=== PATIENT | male | born 1955 | race Caucasian/White ===

== ENCOUNTER → 2017-06-02 | Outpatient (CLI) | payer BC ==
[~2017-06-02] MED LIST: AMLO10TA82 PO; ASP81TEC PO; DABI150C2 PO; FOSI40TA2 PO; NEBI20TA2 PO; NFNEB10T PO; OMEG-12 PO; PANT40TA PO
== END ==
LOC: CARD 13:42
PROVIDERS: ATTEND Physician Assistant
DX: I35.0 Nonrheumatic aortic (valve) stenosis (principal); I25.10 Atherosclerotic heart disease of native coronary artery without angina pectoris; I11.0 Hypertensive heart disease with heart failure; I50.9 Heart failure, unspecified; E78.2 Mixed hyperlipidemia
CPT/HCPCS: 93306

== ENCOUNTER → 2017-08-17 | Outpatient (CLI) | payer BC ==
[~2017-08-17] MED LIST changes: +ASPI-983 PO; +CARV25TA PO; +FISH1CAP15 PO; +HYDR25TA4 PO; +LISI40TA PO; +MULT1TAB69 PO; +OMEP20TA7 PO; +PANT40TA3 PO; +WARF4TAB70 PO
[2017-08-17 09:30] LABS: BASOPHILS % (AUTO) 1 % (0-10); EOSINOPHILS # (AUTO) 0.1 10^3/uL (0.0-0.3); EOSINOPHILS % (AUTO) 2 % (0-10); LYMPHOCYTES # (AUTO) 0.5 X 10^3 (1.0-4.0); LYMPHOCYTES % (AUTO) 10 % (12-44); MEAN CORPUSCULAR HEMOGLOBIN 35 PG (25-34); MEAN CORPUSCULAR HGB CONC 32 G/DL (32-36); MEAN CORPUSCULAR VOLUME 110 FL (80-99); MEAN PLATELET VOLUME 10.5 FL (7.4-10.4); MONOCYTES # (AUTO) 0.5 X 10^3 (0.0-1.0); MONOCYTES % (AUTO) 11 % (0-12); NEUTROPHILS # (AUTO) 3.5 X 10^3 (1.8-7.8); NEUTROPHILS % (AUTO) 75 % (42-75); PLATELET COUNT 219 10^3/uL (130-400); RED BLOOD COUNT 2.63 10^6/uL (4.35-5.85); RED CELL DISTRIBUTION WIDTH 18.6 % (10.0-14.5); WHITE BLOOD COUNT 4.6 10^3/uL (4.3-11.0)
== END ==
LOC: LAB 09:20
PROVIDERS: ATTEND Family Medicine
DX: D64.9 Anemia, unspecified (principal)
CPT/HCPCS: 36415; 85025

== ENCOUNTER → 2017-09-15 | Outpatient (CLI) | payer BC ==
--- NOTE | 2017-09-15 16:03 | Diagnostic Imaging Report ---
EXAMINATION: PET-CT. TECHNIQUE: Serum glucose level at the time of the study is: 143 mg/dL. 12.2 mCi of FDG was administered intravenously followed by obtaining PET images with corresponding noncontrast CT scan images. The CT scan was performed for anatomic correlation and attenuation correction and was not performed according to the diagnostic protocol of the areas covered. The scan was performed from the head to mid thighs. INDICATION: Lung nodule. FINDINGS: There is symmetric FDG uptake in the brain. No suspicious hypermetabolic activity in the neck is seen. In the lower lateral aspect of the left chest wall, there is a mild focus of activity that appears to correlate with a subacute rib fracture with no suspicious mass. The nodule seen in the right lower lobe on the previous CT is again noted measuring 1.5 cm with no significant FDG uptake, suggestive of a benign etiology. In the abdomen and pelvis, there is urinary tract excretion seen with no suspicious mass. Activity is noted along the right antecubital fossa region, probably related to injection site partial infiltration. IMPRESSION: A 1.5 cm right lower lobe pulmonary nodule does not have significant FDG uptake in favor of a benign etiology such as a postinfectious granuloma or hamartoma. A followup CT scan of the chest in 3 months is recommended to ensure stability. Dictated by: Dictated on workstation # [id number]
== END ==
LOC: RAD 08:04
PROVIDERS: ATTEND Internal Medicine Hematology & Oncology
DX: R91.1 Solitary pulmonary nodule (principal); R74.8 Abnormal levels of other serum enzymes

== ENCOUNTER → 2017-09-29 | Outpatient (CLI) | payer BC ==
[~2017-09-29] MED LIST changes: +GADOBUTROL 10 MMOL/10 ML (GADAVIST) VIAL IV ONE
--- NOTE | 2017-09-29 12:48 | Diagnostic Imaging Report ---
CLINICAL INDICATION: Patient states he has no complaints at this time and test is for job requirement. EXAM: MRI of the brain performed without and with 9 cc of Gadovist IV contrast. Sequences include axial DWI, ADC map, coronal gradient echo, axial T2, axial FLAIR, axial T1, axial T1 post IV contrast, coronal T1 fat-sat post IV contrast, and sagittal T1 post IV contrast. COMPARISON: Head CT without contrast dated 08/07/2017. FINDINGS: There is no evidence of acute cerebral infarct, intracranial hemorrhage, or gross mass effect. There are focal and patchy areas of high T2 signal white matter changes seen throughout both cerebral hemispheres and bilateral cerebellar regions related to chronic small vessel ischemic disease. There is normal redman-white matter distinction. The brain parenchymal volume appears appropriate for patient's age. There is no significant midline shift or herniation. The pituitary gland, sella, and suprasellar regions are unremarkable as visualized. The [place] vascular structures show no gross abnormality as visualized. There is no evidence of hydrocephalus. The basal cisterns are unremarkable. The skull, extracranial soft tissue, and orbits are unremarkable. There is mild mucosal thickening involving both maxillary sinuses, ethmoid sinus, and sphenoid sinus. IMPRESSION: 1: There is no evidence of acute cerebral infarction, intracranial hemorrhage, hydrocephalus, or enhancing mass. 2: There is diffuse chronic small vessel ischemic disease. 3: Mild paranasal sinus disease. Dictated by: Dictated on workstation # [id number]
== END ==
LOC: RAD 11:16
PROVIDERS: ATTEND Internal Medicine Hematology & Oncology
DX: I67.82 Cerebral ischemia (principal); J34.89 Other specified disorders of nose and nasal sinuses
CPT/HCPCS: 70553

== ENCOUNTER 2017-10-21 07:53 | Outpatient (RCR) | payer BC ==
[2017-09-02 14:39] LABS: ABSOLUTE RETIC # 145 10e9/L (24-90); BASOPHILS % (AUTO) 1 % (0-10); EOSINOPHILS # (AUTO) 0.1 10^3/uL (0.0-0.3); EOSINOPHILS % (AUTO) 2 % (0-10); HEMATOCRIT 31 % (40-54); HEMOGLOBIN 9.5 G/DL (13.3-17.7); LYMPHOCYTES # (AUTO) 0.5 X 10^3 (1.0-4.0); LYMPHOCYTES % (AUTO) 12 % (12-44); MEAN CORPUSCULAR HEMOGLOBIN 34 PG (25-34); MEAN CORPUSCULAR HGB CONC 31 G/DL (32-36); MEAN CORPUSCULAR VOLUME 109 FL (80-99); MEAN PLATELET VOLUME 10.8 FL (7.4-10.4); MONOCYTES # (AUTO) 0.4 X 10^3 (0.0-1.0); MONOCYTES % (AUTO) 10 % (0-12); NEUTROPHILS # (AUTO) 3.2 X 10^3 (1.8-7.8); NEUTROPHILS % (AUTO) 75 % (42-75); PLATELET COUNT 235 10^3/uL (130-400); RED BLOOD COUNT 2.83 10^6/uL (4.35-5.85); RED CELL DISTRIBUTION WIDTH 15.9 % (10.0-14.5); RETICULOCYTE % 5.11 % (0.50-2.40); WHITE BLOOD COUNT 4.2 10^3/uL (4.3-11.0)
[2017-09-02 15:09] LABS: BAND NEUTROPHILS 0 %; BASOPHILS % (MANUAL) 1 %; EOSINOPHILS % (MANUAL) 0 %; LYMPHOCYTES % (MANUAL) 11 %; MONOCYTES % (MANUAL) 11 %; NEUTROPHILS % (MANUAL) 77 %; POLYCHROMASIA SLIGHT
[2017-09-02 15:10] LABS: ANISOCYTOSIS SLIGHT
[2017-09-02 15:12] LABS: ALANINE AMINOTRANSFERASE 20 U/L (0-55); ALBUMIN 3.5 GM/DL (3.2-4.5); ALKALINE PHOSPHATASE 124 U/L (40-136); BILIRUBIN,TOTAL 1.1 MG/DL (0.1-1.0); BUN/CREATININE RATIO 17; CALCIUM 8.8 MG/DL (8.5-10.1); CARBON DIOXIDE 29 MMOL/L (21-32); CHLORIDE 106 MMOL/L (98-107); CREATININE SERUM 0.75 MG/DL (0.60-1.30); GFR ESTIMATED > 60; GLUCOSE 99 MG/DL (70-105); POTASSIUM 4.2 MMOL/L (3.6-5.0); SODIUM 143 MMOL/L (135-145)
[2017-09-23 14:02] LABS: BASOPHILS % (AUTO) 1 % (0-10); EOSINOPHILS # (AUTO) 0.1 10^3/uL (0.0-0.3); EOSINOPHILS % (AUTO) 1 % (0-10); HEMATOCRIT 39 % (40-54); HEMOGLOBIN 12.6 G/DL (13.3-17.7); LYMPHOCYTES # (AUTO) 0.8 X 10^3 (1.0-4.0); LYMPHOCYTES % (AUTO) 14 % (12-44); MEAN CORPUSCULAR HEMOGLOBIN 32 PG (25-34); MEAN CORPUSCULAR HGB CONC 33 G/DL (32-36); MEAN CORPUSCULAR VOLUME 99 FL (80-99); MEAN PLATELET VOLUME 10.3 FL (7.4-10.4); MONOCYTES # (AUTO) 0.5 X 10^3 (0.0-1.0); MONOCYTES % (AUTO) 8 % (0-12); NEUTROPHILS # (AUTO) 4.3 X 10^3 (1.8-7.8); NEUTROPHILS % (AUTO) 76 % (42-75); PLATELET COUNT 263 10^3/uL (130-400); RED BLOOD COUNT 3.91 10^6/uL (4.35-5.85); RED CELL DISTRIBUTION WIDTH 14.1 % (10.0-14.5); WHITE BLOOD COUNT 5.7 10^3/uL (4.3-11.0)
[2017-09-23 14:19] LABS: INR 1.7 (0.8-1.4); PROTHROMBIN TIME PATIENT 19.6 SEC (12.2-14.7)
[2017-09-23 14:20] LABS: ALANINE AMINOTRANSFERASE 14 U/L (0-55); ALKALINE PHOSPHATASE 89 U/L (40-136); BILIRUBIN,TOTAL 0.6 MG/DL (0.1-1.0); BUN/CREATININE RATIO 12; CALCIUM 9.9 MG/DL (8.5-10.1); CARBON DIOXIDE 27 MMOL/L (21-32); CHLORIDE 103 MMOL/L (98-107); CREATININE SERUM 1.03 MG/DL (0.60-1.30); GFR ESTIMATED > 60; GLUCOSE 99 MG/DL (70-105); POTASSIUM 4.4 MMOL/L (3.6-5.0); SODIUM 139 MMOL/L (135-145); TOTAL PROTEIN 7.3 GM/DL (6.4-8.2)
[~2017-10-21 07:53] MED LIST changes: -GADOBUTROL 10 MMOL/10 ML (GADAVIST) VIAL IV ONE
[2017-10-21 08:10] LABS: BASOPHILS % (AUTO) 0 % (0-10); EOSINOPHILS # (AUTO) 0.1 10^3/uL (0.0-0.3); EOSINOPHILS % (AUTO) 2 % (0-10); HEMATOCRIT 45 % (40-54); HEMOGLOBIN 14.9 G/DL (13.3-17.7); LYMPHOCYTES # (AUTO) 0.7 X 10^3 (1.0-4.0); LYMPHOCYTES % (AUTO) 16 % (12-44); MEAN CORPUSCULAR HEMOGLOBIN 32 PG (25-34); MEAN CORPUSCULAR HGB CONC 33 G/DL (32-36); MEAN CORPUSCULAR VOLUME 96 FL (80-99); MEAN PLATELET VOLUME 10.6 FL (7.4-10.4); MONOCYTES # (AUTO) 0.5 X 10^3 (0.0-1.0); MONOCYTES % (AUTO) 10 % (0-12); NEUTROPHILS # (AUTO) 3.3 X 10^3 (1.8-7.8); NEUTROPHILS % (AUTO) 72 % (42-75); PLATELET COUNT 186 10^3/uL (130-400); RED BLOOD COUNT 4.65 10^6/uL (4.35-5.85); RED CELL DISTRIBUTION WIDTH 15.1 % (10.0-14.5); WHITE BLOOD COUNT 4.6 10^3/uL (4.3-11.0)
[2017-10-21 08:30] LABS: ALANINE AMINOTRANSFERASE 12 U/L (0-55); ALBUMIN 3.9 GM/DL (3.2-4.5); ALKALINE PHOSPHATASE 91 U/L (40-136); BILIRUBIN,TOTAL 0.5 MG/DL (0.1-1.0); BUN/CREATININE RATIO 13; CALCIUM 9.5 MG/DL (8.5-10.1); CARBON DIOXIDE 24 MMOL/L (21-32); CHLORIDE 109 MMOL/L (98-107); GFR ESTIMATED > 60; GLUCOSE 110 MG/DL (70-105); POTASSIUM 4.4 MMOL/L (3.6-5.0); SODIUM 143 MMOL/L (135-145)
== END 2017-12-01 | disposition home or self-care (01) ==
LOC: ONC 07:53
PROVIDERS: ATTEND Internal Medicine Hematology & Oncology
DX: D53.9 Nutritional anemia, unspecified (principal); R91.1 Solitary pulmonary nodule; R74.8 Abnormal levels of other serum enzymes; I48.0 Paroxysmal atrial fibrillation; I42.9 Cardiomyopathy, unspecified; I50.9 Heart failure, unspecified; I27.20 Pulmonary hypertension, unspecified; R41.0 Disorientation, unspecified; Z79.01 Long term (current) use of anticoagulants; Z95.2 Presence of prosthetic heart valve; Z79.82 Long term (current) use of aspirin; Z79.899 Other long term (current) drug therapy
CPT/HCPCS: 36415; 80053; 82525; 82607; 82728; 82746; 83090; 83540; 83921; 85007; 85025; 85027; 85045; 85610; 86880; 99213; 99214

== ENCOUNTER → 2017-12-14 | Outpatient (CLI) | payer BC ==
[~2017-12-14] MED LIST changes: +CATHETER FLUSH 10 ML SYR IV PRN; +IOHEXOL 350 MG/ML 100 ML (OMNIPAQUE 350) VIAL IV ONE; +NS 100 ML (IVPB) BAG IV ONE
--- NOTE | 2017-12-14 13:10 | Diagnostic Imaging Report ---
PROCEDURE: CT chest with contrast only. TECHNIQUE: Multiple contiguous axial images were obtained through the chest after administration of intravenous contrast. INDICATION: Right lower lobe lung nodule. Study is performed for followup. COMPARISON: Comparison is made with prior CT chest from 07/27/2017. FINDINGS: No axillary lymphadenopathy is identified. No hilar or mediastinal lymphadenopathy is detected. 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 No pericardial or pleural fluid is identified. Parenchymal evaluation again demonstrates the smoothly marginated and slightly lobulated mass in the right lower lobe. This measures approximately 16 mm compared with 15 mm on prior exam. No associated calcifications are seen. No new parenchymal mass is seen. The previously noted mild tree-in-bud opacities in the lower lobes have largely resolved, likely representing improving pneumonia. Chronic parenchymal densities in the right upper lobe and subpleural densities in the superior segment of the right lower lobe are stable. Imaging through the upper abdomen does show small stones or sludge within the gallbladder. No other significant abnormality seen. IMPRESSION: 1. Improvement in bilateral infiltrates when compared with prior study from 07/27/2017. 2. Stable smoothly marginated mass in the right lower lobe. Continued short-interval followup with repeat CT chest in four to six months is recommended to show continued stability. Dictated by: Dictated on workstation # [id number]
== END ==
LOC: RAD 10:51
PROVIDERS: ATTEND Internal Medicine Hematology & Oncology
DX: R91.8 Other nonspecific abnormal finding of lung field (principal)
CPT/HCPCS: 71260

== ENCOUNTER 2018-01-20 07:52 | Outpatient (RCR) | payer BC ==
[2017-12-14 10:54] LABS: BASOPHILS % (AUTO) 1 % (0-10); EOSINOPHILS # (AUTO) 0.2 10^3/uL (0.0-0.3); EOSINOPHILS % (AUTO) 3 % (0-10); HEMATOCRIT 43 % (40-54); HEMOGLOBIN 15.1 G/DL (13.3-17.7); LYMPHOCYTES # (AUTO) 0.7 X 10^3 (1.0-4.0); LYMPHOCYTES % (AUTO) 14 % (12-44); MEAN CORPUSCULAR HEMOGLOBIN 32 PG (25-34); MEAN CORPUSCULAR HGB CONC 35 G/DL (32-36); MEAN CORPUSCULAR VOLUME 93 FL (80-99); MEAN PLATELET VOLUME 10.8 FL (7.4-10.4); MONOCYTES # (AUTO) 0.5 X 10^3 (0.0-1.0); MONOCYTES % (AUTO) 10 % (0-12); NEUTROPHILS # (AUTO) 3.5 X 10^3 (1.8-7.8); NEUTROPHILS % (AUTO) 72 % (42-75); PLATELET COUNT 190 10^3/uL (130-400); RED BLOOD COUNT 4.66 10^6/uL (4.35-5.85); WHITE BLOOD COUNT 4.8 10^3/uL (4.3-11.0)
[2017-12-14 11:18] LABS: ALANINE AMINOTRANSFERASE 10 U/L (0-55); ALBUMIN 3.8 GM/DL (3.2-4.5); ALKALINE PHOSPHATASE 74 U/L (40-136); BILIRUBIN,TOTAL 0.8 MG/DL (0.1-1.0); BUN/CREATININE RATIO 13; CALCIUM 9.6 MG/DL (8.5-10.1); CARBON DIOXIDE 26 MMOL/L (21-32); CHLORIDE 106 MMOL/L (98-107); CREATININE SERUM 0.85 MG/DL (0.60-1.30); GFR ESTIMATED > 60; GLUCOSE 97 MG/DL (70-105); POTASSIUM 4.6 MMOL/L (3.6-5.0); SODIUM 138 MMOL/L (135-145); TOTAL PROTEIN 6.5 GM/DL (6.4-8.2)
[~2018-01-20 07:52] MED LIST changes: -CATHETER FLUSH 10 ML SYR IV PRN; -IOHEXOL 350 MG/ML 100 ML (OMNIPAQUE 350) VIAL IV ONE; -NS 100 ML (IVPB) BAG IV ONE
[2018-01-20 08:41] LABS: BASOPHILS % (AUTO) 1 % (0-10); EOSINOPHILS # (AUTO) 0.1 10^3/uL (0.0-0.3); EOSINOPHILS % (AUTO) 2 % (0-10); HEMATOCRIT 41 % (40-54); HEMOGLOBIN 14.5 G/DL (13.3-17.7); LYMPHOCYTES # (AUTO) 0.5 X 10^3 (1.0-4.0); LYMPHOCYTES % (AUTO) 8 % (12-44); MEAN CORPUSCULAR HEMOGLOBIN 35 PG (25-34); MEAN CORPUSCULAR HGB CONC 36 G/DL (32-36); MEAN CORPUSCULAR VOLUME 97 FL (80-99); MEAN PLATELET VOLUME 10.6 FL (7.4-10.4); MONOCYTES # (AUTO) 0.6 X 10^3 (0.0-1.0); MONOCYTES % (AUTO) 10 % (0-12); NEUTROPHILS # (AUTO) 4.9 X 10^3 (1.8-7.8); NEUTROPHILS % (AUTO) 80 % (42-75); PLATELET COUNT 172 10^3/uL (130-400); RED BLOOD COUNT 4.18 10^6/uL (4.35-5.85); RED CELL DISTRIBUTION WIDTH 16.6 % (10.0-14.5); WHITE BLOOD COUNT 6.1 10^3/uL (4.3-11.0)
[2018-01-20 08:58] LABS: ALANINE AMINOTRANSFERASE 9 U/L (0-55); ALKALINE PHOSPHATASE 65 U/L (40-136); BILIRUBIN,TOTAL 1.2 MG/DL (0.1-1.0); BUN/CREATININE RATIO 9; CALCIUM 9.3 MG/DL (8.5-10.1); CARBON DIOXIDE 28 MMOL/L (21-32); CHLORIDE 104 MMOL/L (98-107); CREATININE SERUM 0.88 MG/DL (0.60-1.30); GFR ESTIMATED > 60; GLUCOSE 104 MG/DL (70-105); POTASSIUM 3.8 MMOL/L (3.6-5.0); SODIUM 139 MMOL/L (135-145); TOTAL PROTEIN 6.7 GM/DL (6.4-8.2)
== END 2018-03-14 | disposition home or self-care (01) ==
LOC: ONC 07:52
PROVIDERS: ATTEND Internal Medicine Hematology & Oncology
DX: D53.9 Nutritional anemia, unspecified (principal); R91.1 Solitary pulmonary nodule; R74.8 Abnormal levels of other serum enzymes; I48.0 Paroxysmal atrial fibrillation; I42.9 Cardiomyopathy, unspecified; I50.9 Heart failure, unspecified; I27.20 Pulmonary hypertension, unspecified; R41.0 Disorientation, unspecified; Z95.2 Presence of prosthetic heart valve; Z79.01 Long term (current) use of anticoagulants; Z79.82 Long term (current) use of aspirin; Z79.899 Other long term (current) drug therapy
CPT/HCPCS: 36415; 80053; 85025; 99213

== ENCOUNTER 2018-04-21 07:56 | Outpatient (RCR) | payer BC | END 2018-04-27 | disposition home or self-care (01) | LOC: ONC 07:56 | PROVIDERS: ATTEND Internal Medicine Hematology & Oncology | DX: D53.9 Nutritional anemia, unspecified (principal); R91.1 Solitary pulmonary nodule; R74.8 Abnormal levels of other serum enzymes; I48.0 Paroxysmal atrial fibrillation; I42.9 Cardiomyopathy, unspecified; I50.9 Heart failure, unspecified; I27.20 Pulmonary hypertension, unspecified; R41.0 Disorientation, unspecified; Z95.2 Presence of prosthetic heart valve; Z79.01 Long term (current) use of anticoagulants; Z79.82 Long term (current) use of aspirin; Z79.899 Other long term (current) drug therapy | CPT/HCPCS: 99213 ==

== ENCOUNTER → 2018-06-16 | Outpatient (CLI) | payer BC, MEDICARE | LOC: CARD 11:34 | PROVIDERS: ATTEND Physician Assistant | DX: I08.3 Combined rheumatic disorders of mitral, aortic and tricuspid valves (principal); I50.9 Heart failure, unspecified; I25.10 Atherosclerotic heart disease of native coronary artery without angina pectoris | CPT/HCPCS: 93306 ==

== ENCOUNTER → 2018-07-28 | Outpatient (CLI) | payer BC, MEDICARE ==
[~2018-07-28] MED LIST changes: +IOHEXOL 350 MG/ML 100 ML (OMNIPAQUE 350) VIAL IV ONE; +NS 250 ML (IVPB) BAG IV ONE
--- NOTE | 2018-07-28 12:38 | Diagnostic Imaging Report ---
PROCEDURE: CT chest with contrast only. TECHNIQUE: Multiple contiguous axial images were obtained through the chest after administration of intravenous contrast. INDICATION: Lung nodule, followup. Correlation is made with prior CT chest from 12/14/2017. FINDINGS: No axillary, hilar or mediastinal lymphadenopathy is detected. No pericardial or pleural fluid is identified. There is a density in the posterolateral right upper lobe, image 22, series 2 measuring 9-10 mm, similar to prior exam. Ill-defined subpleural density in left upper lobe laterally is also stable. There is a tiny nodule in superior segment of right lower lobe which appears stable. Smoothly marginated and lobulated nodule in the right lower lobe is stable at 16 mm. Upper abdomen demonstrates a hyperdensity in the right lobe of the liver, similar to prior study. There are multiple stones in the gallbladder. IMPRESSION: 1. Overall stable CT of the chest when compared with prior study from 12/14/2017. Additional six-month followup is recommended to show continued stability of bilateral parenchymal densities. 2. Cholelithiasis. Dictated by: Dictated on workstation # [id number]
== END ==
LOC: RAD 11:44
PROVIDERS: ATTEND Internal Medicine Hematology & Oncology
DX: K80.20 Calculus of gallbladder without cholecystitis without obstruction (principal); R91.1 Solitary pulmonary nodule
CPT/HCPCS: 71260

== ENCOUNTER 2018-08-04 10:10 | Outpatient (RCR) | payer BC, OTHER ==
[~2018-08-04 10:10] MED LIST changes: -IOHEXOL 350 MG/ML 100 ML (OMNIPAQUE 350) VIAL IV ONE; -NS 250 ML (IVPB) BAG IV ONE
== END 2018-11-02 | disposition home or self-care (01) ==
LOC: ONC 10:10
PROVIDERS: ATTEND Internal Medicine Hematology & Oncology
DX: D53.9 Nutritional anemia, unspecified (principal); R91.1 Solitary pulmonary nodule; R74.8 Abnormal levels of other serum enzymes; I48.0 Paroxysmal atrial fibrillation; I42.9 Cardiomyopathy, unspecified; I50.9 Heart failure, unspecified; I27.20 Pulmonary hypertension, unspecified; R41.0 Disorientation, unspecified; Z95.2 Presence of prosthetic heart valve; Z79.01 Long term (current) use of anticoagulants; Z79.82 Long term (current) use of aspirin; Z79.899 Other long term (current) drug therapy
CPT/HCPCS: 99213

== ENCOUNTER 2019-08-04 10:12 | Outpatient (RCR) | payer BC, OTHER | END 2019-11-02 | disposition home or self-care (01) | LOC: ONC 10:12 | PROVIDERS: ATTEND Internal Medicine Hematology & Oncology | DX: D53.9 Nutritional anemia, unspecified (principal); R91.1 Solitary pulmonary nodule; R74.8 Abnormal levels of other serum enzymes; I48.0 Paroxysmal atrial fibrillation; I42.9 Cardiomyopathy, unspecified; I11.0 Hypertensive heart disease with heart failure; I50.9 Heart failure, unspecified; I27.20 Pulmonary hypertension, unspecified; R41.0 Disorientation, unspecified; I25.10 Atherosclerotic heart disease of native coronary artery without angina pectoris; Z95.2 Presence of prosthetic heart valve; Z79.01 Long term (current) use of anticoagulants; Z79.82 Long term (current) use of aspirin; Z79.899 Other long term (current) drug therapy; F03.90 Unspecified dementia, unspecified severity, without behavioral disturbance, psychotic disturbance, mood disturbance, and anxiety; Z72.0 Tobacco use | CPT/HCPCS: 99213 ==

== ENCOUNTER → 2020-09-12 | Outpatient (CLI) | payer MEDICARE, OTHER ==
[~2020-09-12] MED LIST changes: +ASPI-1238 PO; -ASPI-983 PO; +MULT-567 PO; -MULT1TAB69 PO; -PANT40TA3 PO; +PANT40TA52 PO; +WARF4TAB3 PO; -WARF4TAB70 PO
[2020-09-12 14:29] LABS: BASOPHILS # (AUTO) 0.1 10^3/uL (0.0-0.1); BASOPHILS % (AUTO) 1 % (0-10); EOSINOPHILS # (AUTO) 0.2 10^3/uL (0.0-0.3); EOSINOPHILS % (AUTO) 3 % (0-10); HEMATOCRIT 45 % (40-54); LYMPHOCYTES # (AUTO) 1.2 10^3/uL (1.0-4.0); LYMPHOCYTES % (AUTO) 16 % (12-44); MEAN CORPUSCULAR HEMOGLOBIN 33 pg (25-34); MEAN CORPUSCULAR HGB CONC 33 g/dL (32-36); MEAN CORPUSCULAR VOLUME 99 fL (80-99); MEAN PLATELET VOLUME 9.6 fL (9.0-12.2); MONOCYTES # (AUTO) 0.7 10^3/uL (0.0-1.0); MONOCYTES % (AUTO) 9 % (0-12); NEUTROPHILS # (AUTO) 5.4 10^3/uL (1.8-7.8); NEUTROPHILS % (AUTO) 72 % (42-75); PLATELET COUNT 227 10^3/uL (130-400); WHITE BLOOD COUNT 7.5 10^3/uL (4.3-11.0)
[2020-09-12 14:50] LABS: ALANINE AMINOTRANSFERASE 14 U/L (0-55); ALBUMIN 4.3 GM/DL (3.2-4.5); ALKALINE PHOSPHATASE 62 U/L (40-136); BILIRUBIN,TOTAL 0.8 MG/DL (0.1-1.0); BUN/CREATININE RATIO 13; CALCIUM 9.1 MG/DL (8.5-10.1); CARBON DIOXIDE 24 MMOL/L (21-32); CHLORIDE 102 MMOL/L (98-107); CREATININE SERUM 1.09 MG/DL (0.60-1.30); GFR ESTIMATED > 60; GLUCOSE 106 MG/DL (70-105); POTASSIUM 4.3 MMOL/L (3.6-5.0); SODIUM 135 MMOL/L (135-145); TOTAL PROTEIN 7.2 GM/DL (6.4-8.2)
== END ==
LOC: ONC 14:15 → EDSTATUS 15:25
PROVIDERS: ATTEND Internal Medicine Hematology & Oncology
DX: D53.9 Nutritional anemia, unspecified (principal); R91.1 Solitary pulmonary nodule; R74.8 Abnormal levels of other serum enzymes; I11.0 Hypertensive heart disease with heart failure; I25.10 Atherosclerotic heart disease of native coronary artery without angina pectoris; I27.20 Pulmonary hypertension, unspecified; I48.0 Paroxysmal atrial fibrillation; I42.9 Cardiomyopathy, unspecified; I50.9 Heart failure, unspecified; R41.0 Disorientation, unspecified; Z95.2 Presence of prosthetic heart valve; Z79.01 Long term (current) use of anticoagulants; Z79.82 Long term (current) use of aspirin; Z79.899 Other long term (current) drug therapy; F03.90 Unspecified dementia, unspecified severity, without behavioral disturbance, psychotic disturbance, mood disturbance, and anxiety; Z72.0 Tobacco use
CPT/HCPCS: 80053; 82728; 85025; G0463; 99213

== ENCOUNTER → 2020-10-26 | Outpatient (CLI) | payer MEDICARE | LOC: CARD 10:00 | PROVIDERS: ATTEND Internal Medicine Cardiovascular Disease | DX: I08.3 Combined rheumatic disorders of mitral, aortic and tricuspid valves (principal); I50.9 Heart failure, unspecified; Z95.2 Presence of prosthetic heart valve | CPT/HCPCS: 93306 ==

== ENCOUNTER → 2021-05-27 | Outpatient (CLI) | payer MEDICARE ==
[~2021-05-27] MED LIST changes: -LISI40TA PO; +LISI40TA9 PO
== END ==
LOC: CARD 11:00
PROVIDERS: ATTEND Internal Medicine Cardiovascular Disease
DX: I08.0 Rheumatic disorders of both mitral and aortic valves (principal); I11.9 Hypertensive heart disease without heart failure; I25.10 Atherosclerotic heart disease of native coronary artery without angina pectoris
CPT/HCPCS: 93306

== ENCOUNTER → 2022-05-21 | Outpatient (CLI) | payer MEDICARE ==
[~2022-05-21] MED LIST changes: +OMEP20TA56 PO; -OMEP20TA7 PO
== END ==
LOC: CARD 11:33
PROVIDERS: ATTEND Internal Medicine Cardiovascular Disease
DX: I25.10 Atherosclerotic heart disease of native coronary artery without angina pectoris (principal); I08.2 Rheumatic disorders of both aortic and tricuspid valves; I11.9 Hypertensive heart disease without heart failure; Z95.2 Presence of prosthetic heart valve
CPT/HCPCS: 93306

== ENCOUNTER → 2022-05-28 | Outpatient (CLI) | payer MEDICARE ==
[~2022-05-28] VITALS: Ht 187 cm; Wt 68.0 kg
[~2022-05-28] MED LIST changes: +CATHETER FLUSH 10 ML SYR IVP PRN; +REGADENOSON 0.4 MG/5 ML SYR (LEXISCAN) IV ONE
[2022-05-28 09:24] VITALS: BP 144/72
--- NOTE | 2022-05-28 16:55 | Cardiology Stress Test Report ---
Stress Test Report Date of Procedure/Referring: Date of Procedure: May 28, 2022 PCP Admitting Physician Admitting Physician: Attending Physician: Misael Davis MD Indications: cp Baseline Heart Rate: 53 Baseline Blood Pressure: Blood Pressure Systolic: 144 Blood Pressure Diastolic: 72 Baseline Vitals Vital Signs Date Time Temp Pulse Resp B/P (MAP) Pulse Ox O2 Delivery O2 Flow Rate FiO2 05/28/22 09:24 76 144/72 (96) Baseline EKG: Baseline EKG: NSR Summary After explaining the procedure to the patient, he signed a consent and then brought to the stress nuclear laboratory. Patient received 0.4 mg Lexiscan for stress test, ECG, heart rate and blood pressure were monitored continuously. Resting and stress dose of radio tracer were injected, imaging was acquired and reviewed in short axis, horizontal long axis and vertical long axis views. TID: 1.04 SSS: 11 SDS: 7 EF: 52 1. Patient tolerated Lexiscan well 2. Reversible ischemia involving the mid to apical inferior wall, inferior lateral wall 3. Normal left ventricular size, ejection fraction 52% MISAEL DAVIS MD May 28, 2022 16:55
== END ==
LOC: CARD 08:00
PROVIDERS: ATTEND Internal Medicine Cardiovascular Disease
DX: I25.10 Atherosclerotic heart disease of native coronary artery without angina pectoris (principal); I10 Essential (primary) hypertension
CPT/HCPCS: 78452; 93017; A9502

== ENCOUNTER 2022-06-09 09:00 | Day surgery (SDC) | payer MEDICARE ==
[~2022-06-09] VITALS: Ht 187.9 cm; Wt 74.3 kg
[2022-06-09] VITALS (11 sets, daily range): BP systolic 109–190; BP diastolic 59–78
[2022-06-09 07:45] LABS: BILIRUBIN,URINE NEGATIVE (NEGATIVE); CLARITY,URINE CLEAR; COLOR,URINE YELLOW; GLUCOSE, URINE (UA) NEGATIVE (NEGATIVE); KETONES,URINE NEGATIVE (NEGATIVE); LEUKOCYTE ESTERASE ,URINE NEGATIVE (NEGATIVE); NITRITE,URINE NEGATIVE (NEGATIVE); PROTEIN,URINE NEGATIVE (NEGATIVE)
[2022-06-09 07:47] LABS: HEMATOCRIT 45 % (40-54); HEMOGLOBIN 14.6 g/dL (13.3-17.7); MEAN CORPUSCULAR HEMOGLOBIN 32 pg (25-34); MEAN CORPUSCULAR HGB CONC 32 g/dL (32-36); MEAN CORPUSCULAR VOLUME 100 fL (80-99); MEAN PLATELET VOLUME 9.9 fL (9.0-12.2); PLATELET COUNT 195 10^3/uL (130-400); WHITE BLOOD COUNT 5.5 10^3/uL (4.3-11.0)
[2022-06-09 07:56] LABS: BACTERIA,URINE NEGATIVE /HPF; RBC,URINE RARE /HPF; SQUAMOUS EPITHELIAL CELL,UR RARE /HPF
[2022-06-09 08:00] LABS: INR 2.1 (0.8-1.4); PROTHROMBIN TIME PATIENT 24.2 SEC (12.2-14.7)
[2022-06-09 08:09] LABS: ALBUMIN 4.2 GM/DL (3.2-4.5); BILIRUBIN,TOTAL 0.6 MG/DL (0.1-1.0); CALCIUM 9.1 MG/DL (8.5-10.1); CREATININE SERUM 0.86 MG/DL (0.60-1.30); POTASSIUM 4.1 MMOL/L (3.6-5.0); TOTAL PROTEIN 7.4 GM/DL (6.4-8.2)
--- NOTE | 2022-06-09 08:12 | Diagnostic Imaging Report ---
Indication: Coronary artery disease. Compared: 07/27/2017 Findings: Sternal wires midline. Air trapping, COPD all chronic. No overt failure, effusion or pneumothorax. The right lower lobe lung nodule of 1.8 cm and is a non-FDG avid on a metabolic PET CT performed August 2017 and showed no change from prior exam, this is presumed benign. Impression: Chronic COPD, chronic benign right lower lobe lung nodule. No acute-appearing abnormality. Dictated by: Dictated on workstation # [id number]
--- NOTE | 2022-06-09 08:16 | Cardiac Procedure Note-CS/ASA ---
Pre-Procedure Note Pre-Op Procedure Note Date of Available H&P: Jun 03, 2022 Date H&P Reviewed: Jun 09, 2022 Time H&P Reviewed: 08:16 History & Physical: H&P Reviewed, Patient Examed, No changes noted Pre-Operative Diagnosis: CAD Conscious Sedation Pre-Proced Time 08:16 ASA Score 3 For ASA 3 and 4: Consider anesthesia and medical clearance. Also, for patients with a history of failed moderate sedation consider anesthesia. Airway Lungs Heart ASA score ASA 1: a normal healthy patient ASA 2: a patient with a mild systemic disease (mid diabetes, controlled hypertension, obesity ASA 3: a patient with a severe systemic disease that limits activity (angina, COPD, prior Myocardial infarction) ASA 4: a patient with an incapacitating disease that is a constant threat to life (CHF, renal failure) ASA 5: a moribund patient not expected to survive 24 hrs. (ruptured aneurysm) ASA 6: a declared brain- patient whose organs are being harvested. For emergent operations, add the letter E after the classification Mallampati Classification Grade 3 Sedation Plan Analgesia, Amnesia, Plan communicated to team members, Discussed options with patient/fam, Discussed risks with patient/fam The patient is an appropriate candidate to undergo the planned procedure, sedation, and anesthesia. The patient immediately re-assessed prior to indication. MISAEL CORTÉS MD Jun 09, 2022 08:16
[~2022-06-09 09:00] MED LIST changes: +AMLO-251 PO; +CARV12.53 PO; -CATHETER FLUSH 10 ML SYR IVP PRN; +DONE10TA41 PO; +ESCI-2 PO; +HEParin (CATH LAB) 2,000 ML IV ONE; +HEParin 1000 UNIT/ML (10ML VIAL) FOR BOLUS ONE; +HYDR-700 PO; +LIDOCAINE 1% INJ 20 ML VIAL ONE; +MIDAZOLAM 2 MG/2 ML (VERSED) VIAL ONE; +NITRO DRIP 25000 MCG/D5W 0 ML IV ONE; +NS IV 1000 ML 1,000 ML IV SCH; +NS IV 1000 ML 1,000 ML ONE; +OMEP20CA18 PO; +PATIENT MAY USE OWN MEDS, ALL PO SCH; -REGADENOSON 0.4 MG/5 ML SYR (LEXISCAN) IV ONE; +ROSU10TA28 PO; +VERAPAMIL 5 MG/2 ML (CALAN) VIAL IV ONE; +WRF10T PO; +fentaNYL INJ 100 MCG/2 ML AMP ONE
--- NOTE | 2022-06-09 09:00 | Discharge Inst-Post CATH ---
Discharge Inst-CATH/EP Problems Reviewed?: Yes Post Cardiac Cath/EP D/C Inst Follow Up/Plan Appointment with Dr. Davis's office in 2 to 4 weeks <b>CARDIAC CATH/EP PROCEDURE DISCHARGE INSTRUCTIONS</b> ACTIVITY * Go Home directly and rest. * Limit activity of the leg (or wrist if it was used) for 7 days including aer obics, swimming, jogging, bicycling, etc. * Restrict stair-climbing for 7 days if possible, if not, climb up with your non-cath leg, then bring together on the same step. * Avoid lifting, pushing, pulling or excessive movement of the affected extremi ty for 7 days. * Customary sexual activity may be resumed after 2 days-use caution not to use a position that strains or causes pain to the affected extremity. * No driving for 24 hours. * NO SMOKING. * Avoid straining for bowel movements for 7 days. * Gentle walking on level ground is allowed. * Returning to work will depend on the type of procedure and the results. Your doctor will discuss this with you. CALL YOUR DOCTOR FOR ANY OF THE FOLLOWING: *If bleeding from the puncture site occurs- Apply gentle pressure to site with clean cloth and call your doctor or EMS. * If a knot or lump forms under the skin, increases in size, or causes pain. * If bruising appears to be worsening or moving further down your leg instead of disappearing. * Temperature above 101 F. CARE OF YOUR GROIN INCISION; * Bruising or purple discoloration of the skin near the puncture site is common. * You may shower only, no bathtub bathing for 5 days. Be careful to avoid slipping as your leg may feel stiff. * If a closure device was used on your femoral artery, please see the attached guide regarding care of the device and your leg. * Leave dressing on FOR 24 hours. CARE OF YOUR WRIST INCISION; * Bruising or purple discoloration of the skin near the puncture site is common. * You may shower. * DO NOT submerge wrist. * Leave dressing on FOR 24 hours. MISAEL DAVIS MD Jun 09, 2022 09:00
--- NOTE | 2022-06-09 09:06 | Cardiac Cath Report ---
Cardiac Cath Report Physician (s)/[employer] Vice President (s) Physician MISAEL CORTÉS MD Pre-Procedure Diagnosis Pre-Procedure Diagnosis: CAD Post-Procedure Note Procedure Start Date: Jun 09, 2022 Name of Procedure: Coronary angiogram Findings/Procedure Note PROCEDURE NOTE: 67-year-old gentleman with history of aortic valve replacement, had an abnormal stress test, scheduled for cardiac catheterization possible PTCA. After explaining the procedure to the patient, all pros and cons were explained, all questions were answered. The patient signed the consent and then he was placed on the cardiac catheterization laboratory. Groin was prepped SL fashion local anesthesia was used. Sheath placed in the right femoral artery. Rashmi right and left catheter were used to access the coronary system. At the end of the procedure the sheath was removed. Closure device was deployed FINDINGS: Hemodynamics LV Aorta ANATOMY: Left Main has no obstructive disease Left Anterior Descending is slightly tortuous with mild disease nonobstructive disease Left Circumflex has mild disease nonobstructive disease Right Coronary Artery is dominant artery with mild disease nonobstructive disease CONCLUSION: 1. Mild coronary artery disease nonobstructive disease 2. Fluoroscopy of metallic valve in the aortic position functioning normally DISCUSSION AND RECOMMENDATION: Abnormal stress test is probably due to extracardiac attenuation, medical therapy is recommended no intervention is warranted Anesthesia Type: Conscious Sedation Estimated blood loss (mL): 15 ml Contrast Amount: 33 ml Total Radiation Dose: 160 mGy Post-Procedure Diagnosis Post-operative diagnosis: Coronary artery disease Aortic valve replacement Hypertension Hyperlipidemia MISAEL CORTÉS MD Jun 09, 2022 09:06
== END 2022-06-09 15:00 ==
LOC: CATH 09:00 → SDC 09:31 → CATH 15:00
PROVIDERS: ATTEND Internal Medicine Cardiovascular Disease
DX: I25.10 Atherosclerotic heart disease of native coronary artery without angina pectoris (principal); Z95.2 Presence of prosthetic heart valve; F17.210 Nicotine dependence, cigarettes, uncomplicated; Z79.899 Other long term (current) drug therapy; I35.0 Nonrheumatic aortic (valve) stenosis; D64.9 Anemia, unspecified; I27.20 Pulmonary hypertension, unspecified; I11.0 Hypertensive heart disease with heart failure; I50.21 Acute systolic (congestive) heart failure; I65.23 Occlusion and stenosis of bilateral carotid arteries; I49.5 Sick sinus syndrome; I48.91 Unspecified atrial fibrillation; Z79.01 Long term (current) use of anticoagulants; E78.2 Mixed hyperlipidemia
CPT/HCPCS: 71045; 80053; 80061; 81000; 85027; 85610; 85730; 87081; 93005; 93454; C1760; C1894 ×2; 36415

== ENCOUNTER 2023-02-28 13:55 | Emergency (ER) | payer MEDICARE ==
[~2023-02-28] VITALS: Ht 187 cm; Wt 70.0 kg
[~2023-02-28 13:55] MED LIST changes: -HEParin (CATH LAB) 2,000 ML IV ONE; -HEParin 1000 UNIT/ML (10ML VIAL) FOR BOLUS ONE; -LIDOCAINE 1% INJ 20 ML VIAL ONE; -MIDAZOLAM 2 MG/2 ML (VERSED) VIAL ONE; -NITRO DRIP 25000 MCG/D5W 0 ML IV ONE; -NS IV 1000 ML 1,000 ML IV SCH; -NS IV 1000 ML 1,000 ML ONE; -PATIENT MAY USE OWN MEDS, ALL PO SCH; -VERAPAMIL 5 MG/2 ML (CALAN) VIAL IV ONE; -fentaNYL INJ 100 MCG/2 ML AMP ONE
[2023-02-28 14:05] VITALS: BP 155/64
[2023-02-28] MEDS ORDERED: OXYMETAZOLINE (AFRIN) 0.05% NA 30 ML BTL ONE (14:31)
[2023-02-28 14:48] LABS: BASOPHILS % (AUTO) 1 % (0-10); EOSINOPHILS # (AUTO) 0.1 10^3/uL (0.0-0.3); EOSINOPHILS % (AUTO) 2 % (0-10); HEMATOCRIT 45 % (40-54); HEMOGLOBIN 14.8 g/dL (13.3-17.7); LYMPHOCYTES # (AUTO) 0.6 X 10^3 (1.0-4.0); LYMPHOCYTES % (AUTO) 11 % (12-44); MEAN CORPUSCULAR HEMOGLOBIN 32 pg (25-34); MEAN CORPUSCULAR HGB CONC 33 g/dL (32-36); MEAN CORPUSCULAR VOLUME 98 fL (80-99); MEAN PLATELET VOLUME 9.5 fL (9.0-12.2); MONOCYTES # (AUTO) 0.5 X 10^3 (0.0-1.0); MONOCYTES % (AUTO) 9 % (0-12); NEUTROPHILS # (AUTO) 4.4 X 10^3 (1.8-7.8); NEUTROPHILS % (AUTO) 78 % (42-75); PLATELET COUNT 187 10^3/uL (130-400); WHITE BLOOD COUNT 5.7 10^3/uL (4.3-11.0)
[2023-02-28 14:58] LABS: INR 3.2 (0.8-1.4); POTASSIUM 4.8 MMOL/L (3.6-5.0); PROTHROMBIN TIME PATIENT 32.3 SEC (12.2-14.7)
[2023-02-28 14:59] LABS: CALCIUM 9.5 MG/DL (8.5-10.1)
[2023-02-28 15:03] LABS: CREATININE SERUM 0.78 MG/DL (0.60-1.30)
--- NOTE | 2023-02-28 16:00 | ED General ---
General Chief Complaint: Nasal Problems Stated Complaint: NOSE BLEED Nursing Triage Note: PT AMB TO [facility] PT CO OF NOSE BLEED FROM R [facility] SINCE ABOUT 0400. PT IS ON COUMADIN AND STATES LEVEL DRAWN ON THURSDAY WAS 3.7. PT DENIES PAIN. NOSE CLAMP PLACED ON PT Source of Information: Patient Exam Limitations: No Limitations History of Present Illness Date Seen by Provider: Feb 28, 2023 Allergies and Home Medications Allergies Coded Allergies: No Known Drug Allergies (Unverified , 11/05/11) Patient Home Medication List Amlodipine Besylate (Amlodipine Besylate) 10 Mg Tablet, 10 MG PO DAILY, (Reported) Entered as Reported by: KURT MONET on 06/09/22 08 Aspirin (Aspirin EC) 81 Mg Tablet.dr, 81 MG PO DAILY, (Reported) Entered as Reported by: PHYLLIS BRONSON on 07/27/17 172 Carvedilol (Carvedilol) 12.5 Mg Tablet, 12.5 MG PO BID, (Reported) Entered as Reported by: KURT MONET on 06/09/22 08 Donepezil HCl (Donepezil HCl) 10 Mg Tablet, 10 MG PO HS, (Reported) Entered as Reported by: KURT MONET on 06/09/22 08 Escitalopram Oxalate (Escitalopram Oxalate) 10 Mg Tablet, 10 MG PO HS, (Reported) Entered as Reported by: KURT MONET on 06/09/22 08 Fish Oil/Dha/Epa (Fish Oil 1,200 mg Fish Oil) 1 Each Capsule, 1,200 MG PO DAILY, (Reported) Entered as Reported by: PHYLLIS BRONSON on 07/27/17 172 Hydroxyzine HCl (Hydroxyzine HCl) 25 Mg Tablet, 25 MG PO Q6H PRN for ANXIETY, (Reported) Entered as Reported by: KURT MONET on 06/09/22 08 Lisinopril (Lisinopril) 40 Mg Tablet, 40 MG PO DAILY, (Reported) Entered as Reported by: PHYLLIS BRONSON on 07/27/17 170 Multivitamin (Multivitamins) 1 Each Tablet, 1 TAB PO DAILY, (Reported) Entered as Reported by: PHYLLIS BRONSON on 07/27/17 172 Omeprazole (Omeprazole) 20 Mg Capsule.dr, 20 MG PO DAILY, (Reported) Entered as Reported by: KURT MONET on 06/09/22801 Rosuvastatin Calcium (Rosuvastatin Calcium) 10 Mg Tablet, 10 MG PO HS, (Reported) Entered as Reported by: KURT MONET on 06/09/22801 Warfarin Sodium (Warfarin Sodium) 10 Mg Tablet, 5 MG PO MON,WED,FRI, (Reported) Entered as Reported by: KURT MONET on 06/09/22801 Warfarin Sodium (Warfarin Sodium) 10 Mg Tablet, 10 MG PO sa,navarro,thu,thur, (Reported) Entered as Reported by: KURT MONET on 06/09/22801 Past Pagbzmf-Phcbqf-Vgmhdx Hx Patient Social History Tobacco Use?: Yes Tobacco type used: Cigarettes Substance use?: No Alcohol Use?: No Pt feels they are or have been: No Immunizations Up To Date Tetanus Booster (TDap): Unknown Seasonal Allergies Seasonal Allergies: No Past Medical History Surgery/Hospitalization HX: HIP SURG, HEART VALVE SURG, APPY Surgeries: Yes Appendectomy, Orthopedic, Valve Replacement Respiratory: No Cardiac: Yes (CHF; AORTIC STENOSIS--S/P MECHANICAL VALVE REPLACEMENT 2014) Atrial Fibrillation, Cardiomyopathy, High Cholesterol, Hypertension, Valvular Heart Disease Neurological: No Reproductive Disorders: No Sexually Transmitted Disease: No HIV/AIDS: No Gastrointestinal: Yes Hiatal Hernia, Ulcer Musculoskeletal: Yes Fractures Endocrine: No HEENT: No Cancer: No Psychosocial: No Integumentary: No Blood Disorders: No Adverse Reaction/Blood Tranf: No Family Medical History FH: COPD (chronic obstructive pulmonary disease) 19 MOTHER Physical Exam Vital Signs Vital Signs - First Documented 02/28/23 14:05 Temp 36.8 Pulse 52 Resp 18 B/P (MAP) 155/64 (94) Pulse Ox 94 Capillary Refill : Less Than 3 Seconds Height, Weight, BMI Height: 6'2.00" Weight: 185lbs. 8.0oz. 84.267642qi; 20.00 BMI Method:Stated Progress/Results/Core Measures Suspected Sepsis SIRS Temperature: Pulse: 52 Respiratory Rate: 18 Laboratory Tests 02/28/23 14:40: White Blood Count 5.7 Blood Pressure 155 /64 Mean: 94 Laboratory Tests 02/28/23 14:40: Creatinine 0.78, INR Comment 3.2H, Platelet Count 187 Results/Orders Lab Results Laboratory Tests Test 02/28/23 14:40 Range/Units White Blood Count 5.7 4.3-11.0 10^3/uL Red Blood Count 4.62 4.30-5.52 10^6/uL Hemoglobin 14.8 13.3-17.7 g/dL Hematocrit 45 40-54 % Mean Corpuscular Volume 98 80-99 fL Mean Corpuscular Hemoglobin 32 25-34 pg Mean Corpuscular Hemoglobin Concent 33 32-36 g/dL Red Cell Distribution Width 14.6 H 10.0-14.5 % Platelet Count 187 130-400 10^3/uL Mean Platelet Volume 9.5 9.0-12.2 fL Immature Granulocyte % (Auto) 0 % Neutrophils (%) (Auto) 78 H 42-75 % Lymphocytes (%) (Auto) 11 L 12-44 % Monocytes (%) (Auto) 9 0-12 % Eosinophils (%) (Auto) 2 0-10 % Basophils (%) (Auto) 1 0-10 % Neutrophils # (Auto) 4.4 1.8-7.8 X 10^3 Lymphocytes # (Auto) 0.6 L 1.0-4.0 X 10^3 Monocytes # (Auto) 0.5 0.0-1.0 X 10^3 Eosinophils # (Auto) 0.1 0.0-0.3 10^3/uL Basophils # (Auto) 0.0 0.0-0.1 10^3/uL Immature Granulocyte # (Auto) 0.0 0.0-0.1 10^3/uL Prothrombin Time 32.3 H 12.2-14.7 SEC INR Comment 3.2 H 0.8-1.4 Sodium Level 136 135-145 MMOL/L Potassium Level 4.8 3.6-5.0 MMOL/L Chloride Level 98 98-107 MMOL/L Carbon Dioxide Level 30 21-32 MMOL/L Anion Gap 8 5-14 MMOL/L Blood Urea Nitrogen 10 7-18 MG/DL Creatinine 0.78 0.60-1.30 MG/DL Estimat Glomerular Filtration Rate 97 BUN/Creatinine Ratio 13 Glucose Level 105 70-105 MG/DL Calcium Level 9.5 8.5-10.1 MG/DL My Orders Orders - JUSTEN VALENZUELA MD Basic Metabolic Panel (02/28/23 14:18) Cbc With Automated Diff (02/28/23 14:18) Protime With Inr (02/28/23 14:18) Ed Iv/Invasive Line Start (02/28/23 14:18) Oxymetazoline 0.05% Nasal [place]y (Afrin 0. (02/28/23 21:00) Oxymetazoline 0.05% Nasal [place] (Afrin 0. (02/28/23 14:31) Vital Signs/I&O 02/28/23 14:05 Temp 36.8 Pulse 52 Resp 18 B/P (MAP) 155/64 (94) Pulse Ox 94 Capillary Refill : Less Than 3 Seconds Blood Pressure Mean: 94 Departure Impression Primary Impression: Epistaxis Additional Impression: Anticoagulated Disposition: HOME, SELF-CARE Condition: Improved Departure-Patient Inst. Decision time for Depature: 15:58 Referrals: NO,LOCAL PHYSICIAN (PCP/Family) Primary Care Physician Patient Instructions: Nosebleeds ED, Warfarin Add. Discharge Instructions: Your INR today is 3.2 which is appropriate for an artificial heart valve. Continue your current dose of warfarin. I suggest you have your INR checked again this week since you have been having problems with bleeding. Contact Dr. Davis's office on Thursday to make arrangements. If bleeding returns, apply direct pressure and a pinching fashion or use the nasal clamp. Try to keep your head in an upright position. Sipping or lightly gargling ice water may also be helpful. You may use the Afrin with 2 big sprays in each nostril followed by the clamping. Afrin should only be used twice a day and for no more than 3 days. If bleeding does not stop within 15 to 30 minutes of interventions at home, return to the emergency room. Try not to rub, blow, or otherwise disrupt your nose as this may loosen the clot that has stopped the bleeding. All discharge instructions reviewed with patient and/or family. Voiced understanding. JUSTEN VALENZUELA MD Feb 28, 2023 16:00
[2023-02-28] MEDS ORDERED: OXYMETAZOLINE (AFRIN) 0.05% NA 30 ML BTL SCH (21:00)
== END 2023-02-28 16:07 | disposition home or self-care (01) ==
LOC: EDUNIT# 13:55 → ER 13:58
DX: R04.0 Epistaxis (principal); F17.210 Nicotine dependence, cigarettes, uncomplicated; Z79.01 Long term (current) use of anticoagulants
CPT/HCPCS: 36415; 80048; 85025; 85610; 99282

== ENCOUNTER 2023-05-02 12:54 | Observation (INO) | payer MEDICARE ==
[~2023-05-02] VITALS: Ht 188 cm; Wt 76.3 kg
[2023-05-02] MEDS ORDERED: RT-ALBUTEROL HFA 8.5 GM INHALER IH STA (13:16)
--- NOTE | 2023-05-02 13:41 | Diagnostic Imaging Report ---
INDICATION: Chest pain Portable chest at 12:39 PM There are postoperative changes from a median sternotomy. Heart size and pulmonary vascularity are normal. Lungs are clear. There are no effusions or pneumothoraces. IMPRESSION: No acute abnormalities in the chest. Dictated by: Dictated on workstation # [id number]
--- NOTE | 2023-05-02 13:42 | Diagnostic Imaging Report ---
PROCEDURE: CT head wo r/o stroke. TECHNIQUE: Multiple contiguous axial images were obtained through the brain without the use of intravenous contrast. Auto Exposure Controls were utilized during the CT exam to meet ALARA standards for radiation dose reduction. INDICATION: Acute neurologic deficit The ventricles are normal in size, shape and position. There are no masses or hemorrhages. There are no extra-axial fluid collections. There is an old lacunar infarct in left basal ganglia unchanged from 08/07/2017. IMPRESSION: No acute abnormality seen in head Dictated by: Dictated on workstation # [id number]
[2023-05-02 13:47] LABS: BASOPHILS % (AUTO) 1 % (0-10); EOSINOPHILS # (AUTO) 0.1 10^3/uL (0.0-0.3); EOSINOPHILS % (AUTO) 2 % (0-10); HEMATOCRIT 41 % (40-54); HEMOGLOBIN 13.1 g/dL (13.3-17.7); LYMPHOCYTES # (AUTO) 0.5 X 10^3 (1.0-4.0); LYMPHOCYTES % (AUTO) 9 % (12-44); MEAN CORPUSCULAR HEMOGLOBIN 32 pg (25-34); MEAN CORPUSCULAR HGB CONC 32 g/dL (32-36); MEAN CORPUSCULAR VOLUME 99 fL (80-99); MEAN PLATELET VOLUME 10.3 fL (9.0-12.2); MONOCYTES # (AUTO) 0.6 X 10^3 (0.0-1.0); MONOCYTES % (AUTO) 13 % (0-12); NEUTROPHILS # (AUTO) 3.9 X 10^3 (1.8-7.8); NEUTROPHILS % (AUTO) 76 % (42-75); PLATELET COUNT 155 10^3/uL (130-400); WHITE BLOOD COUNT 5.1 10^3/uL (4.3-11.0)
--- NOTE | 2023-05-02 14:01 | ED Neurological Problem ---
General Chief Complaint: Neurological Problems Stated Complaint: LEG NUMBNESS Nursing Triage Note: was at home going about a normal day went into the bathroom came badk and states his right leg was numb, got up trying to "get the blood moving" however it didnt "come back" it is at this time he took his blood pressure ans noted it to be "high". feeling nervous and unsure decided to call 911. Source: patient, old records Exam Limitations: no limitations History of Present Illness Date Seen by Provider: May 02, 2023 Time Seen by Provider: 12:27 Initial Comments This 67-year-old gentleman presents to the emergency room via [facility] with concerns for right leg numbness and chest pain that occurred at home. He reports experiencing some right leg numbness shortly after getting off the toilet around 11:00. He had ambulated to the kitchen and got some coffee when the numbness started. The numbness was waxing and waning over the next 15 to 30 minutes. He has had lesser episodes in the past that were self-limited. He has not been evaluated for these episodes of numbness previously. Patient also reports that he had a brief episode of chest pain during the episode of numbness. He was ambulatory. He reports feeling some generalized weakness that was perhaps a little greater in the right leg. He denies any chest pain at this time. He does not have any apparent focal neurologic deficits currently. He reports a slight feeling of numbness on the dorsum of his right foot and in the right lateral toes. However, he retains sensation on examination. He is noted to have significant wheezing and delayed expiratory phase with increased work of breathing. He denies history of COPD but reports he does have asthma. He is not presently using any inhaled medications. Oxygen saturation is in the low to mid 90s on room air. Stroke activation was not paged as there are no measurable neurologic deficits on exam. Patient does take warfarin but he cannot explain why. He is also noted to be taking donepezil. Patient noted his blood pressure was high at home but does not give a specific measurement. His is not yet at the hospital. His primary care provider is Sara Edwards and his crew supervisor is Dr. Davis. Cardiac cath from a year ago was reviewed in his chart. There was mild nonobstructive coronary artery disease. Metallic aortic valve was noted. 17:13 - Patient's arrived and provides more history. Per her report, patient was seen at Sara Edwards's clinic last week and had a resting oxygen saturation of 80% and an exercise pulse oximetry of 75%. Reportedly, admission was not pursued at that time. A Trelegy Ellipta was prescribed which patient picked up but has not been using. He did not think he needed it. Home oxygen was also ordered but has not been delivered to the home yet. The filling date on the Trelegy Ellipta is April 28. I discussed CODE STATUS with the patient and his . He elects to be full code. Allergies and Home Medications Allergies Coded Allergies: No Known Drug Allergies (Unverified , 05/02/23) Patient Home Medication List Home Medication List Reviewed: Yes Amlodipine Besylate (Amlodipine Besylate) 10 Mg Tablet, 10 MG PO DAILY, (Reported) Entered as Reported by: KURT MONET on 06/09/22801 Last Action: Reviewed Aspirin (Aspirin EC) 81 Mg Tablet.dr, 81 MG PO DAILY, (Reported) Entered as Reported by: PHYLLIS BRONSON on 07/27/171719 Last Action: Reviewed Carvedilol (Carvedilol) 12.5 Mg Tablet, 12.5 MG PO BID, (Reported) Entered as Reported by: KURT MONET on 06/09/22801 Last Action: Reviewed Donepezil HCl (Donepezil HCl) 10 Mg Tablet, 10 MG PO HS, (Reported) Entered as Reported by: KURT MONET on 06/09/22801 Last Action: Reviewed Escitalopram Oxalate (Escitalopram Oxalate) 10 Mg Tablet, 10 MG PO HS, (Reported) Entered as Reported by: KURT MONET on 06/09/22801 Last Action: Reviewed Fish Oil/Dha/Epa (Fish Oil 1,200 mg Fish Oil) 1 Each Capsule, 1,200 MG PO DAILY, (Reported) Entered as Reported by: PHYLLIS BRONSON on 07/27/171719 Last Action: Reviewed Fluticasone/Umeclidin/Vilanter (Trelegy Ellipta 100-62.5-25) 100-62.5 Blst.w.dev, 1 EACH IH BID, (Reported) Entered as Reported by: JENNI DAMON on 05/04/23951 Last Action: Reviewed Lisinopril (Lisinopril) 40 Mg Tablet, 40 MG PO DAILY, (Reported) Entered as Reported by: PHYLLIS BRONSON on 07/27/17 170 Last Action: Reviewed Multivitamin (Multivitamins) 1 Each Tablet, 1 TAB PO DAILY, (Reported) Entered as Reported by: PHYLLIS BRONSON on 07/27/17 1720 Last Action: Reviewed Omeprazole (Omeprazole) 20 Mg Capsule.dr, 20 MG PO DAILY, (Reported) Entered as Reported by: KURT MONET on 06/09/22801 Last Action: Reviewed Prednisone (Prednisone) 10 Mg Tab.ds.pk, 10 MG PO DAILY Prescribed by: MIKAELA OMER on 05/04/23 1147 Rosuvastatin Calcium (Rosuvastatin Calcium) 10 Mg Tablet, 10 MG PO HS, (Reported) Entered as Reported by: KURT MONET on 06/09/22801 Last Action: Reviewed Warfarin Sodium (Warfarin Sodium) 10 Mg Tablet, 5 MG PO MON,FRI, (Reported) Entered as Reported by: KURT MONET on 06/09/22801 Last Action: Reviewed Warfarin Sodium (Warfarin Sodium) 10 Mg Tablet, 10 MG PO SAT,SUN,,THU,, (Reported) Entered as Reported by: KURT MONET on 06/09/22801 Last Action: Reviewed Review of Systems Review of Systems Constitutional: no symptoms reported Eyes: No Symptoms Reported Ears, Nose, Mouth, Throat: no symptoms reported Cardiovascular: see HPI Gastrointestinal: no symptoms reported Genitourinary: no symptoms reported Musculoskeletal: no symptoms reported Skin: no symptoms reported Psychiatric/Neurological: See HPI Endocrine: No Symptoms Reported Hematologic/Lymphatic: No Symptoms Reported Past Yhyhked-Gwinox-Rjwfrg Hx Patient Social History Tobacco Use?: Yes Tobacco type used: Cigarettes Smoking Status: Current Everyday Smoker Use of E-Cig and/or Vaping dev: No Substance use?: No Alcohol Use?: No Pt feels they are or have been: No Immunizations Up To Date Tetanus Booster (TDap): Unknown Influenza Vaccine Up-to-Date: Yes; Up-to-Date First/Initial COVID19 Vaccinat: "i dont know" Seasonal Allergies Seasonal Allergies: No Past Medical History Surgery/Hospitalization HX: HIP SURG, HEART VALVE SURG, APPY Surgeries: Yes Appendectomy, Orthopedic, Valve Replacement (Metallic aortic valve) Respiratory: No Cardiac: Yes (CHF; AORTIC STENOSIS--S/P MECHANICAL VALVE REPLACEMENT 2014) Atrial Fibrillation, Cardiomyopathy, High Cholesterol, Hypertension, Valvular Heart Disease Neurological: No Reproductive Disorders: No Sexually Transmitted Disease: No HIV/AIDS: No Gastrointestinal: Yes Hiatal Hernia, Ulcer Musculoskeletal: Yes Fractures Endocrine: No HEENT: No Cancer: No Psychosocial: No Integumentary: No Blood Disorders: No Adverse Reaction/Blood Tranf: No Family Medical History FH: COPD (chronic obstructive pulmonary disease) 19 MOTHER Physical Exam Vital Signs Vital Signs - First Documented 05/02/23 05/02/23 12:55 15:31 Temp 36.6 Pulse 51 Resp 20 B/P (MAP) 130/61 (84) Pulse Ox 96 O2 Delivery Room Air O2 Flow Rate 1.00 Capillary Refill : Less Than 3 Seconds Height, Weight, BMI Height: 6'2.00" Weight: 185lbs. 8.0oz. 84.126173nm; 19.00 BMI Method:Stated General Appearance: WD/WN, no apparent distress HEENT: normal ENT inspection Neck: full range of motion Respiratory: accessory muscle use; No crackles; wheezing, other (Prolonged expiratory phase) Cardiovascular: regular rate, rhythm, no murmur, other (Mild lower extremity edema) Gastrointestinal: non tender, soft; No distended Extremities: no pedal edema, swelling (Mild lower extremity edema equal bilateral), other (Chronic appearing skin changes on the lower legs and feet) Neurologic/Psychiatric: dat instructor II-XII nml as tested, no motor/sensory deficits, alert, normal mood/affect Crainal Nerves: normal hearing, normal speech, PERRL Coordination/Gait: normal finger to nose Motor/Sensory: no motor deficit, no sensory deficit Skin: normal color, warm/dry Progress/Results/Core Measures Results/Orders Lab Results Laboratory Tests Test 05/02/23 13:28 05/02/23 14:20 Range/Units White Blood Count 5.1 4.3-11.0 10^3/uL Red Blood Count 4.09 L 4.30-5.52 10^6/uL Hemoglobin 13.1 L 13.3-17.7 g/dL Hematocrit 41 40-54 % Mean Corpuscular Volume 99 80-99 fL Mean Corpuscular Hemoglobin 32 25-34 pg Mean Corpuscular Hemoglobin Concent 32 32-36 g/dL Red Cell Distribution Width 14.9 H 10.0-14.5 % Platelet Count 155 130-400 10^3/uL Mean Platelet Volume 10.3 9.0-12.2 fL Immature Granulocyte % (Auto) 0 % Neutrophils (%) (Auto) 76 H 42-75 % Lymphocytes (%) (Auto) 9 L 12-44 % Monocytes (%) (Auto) 13 H 0-12 % Eosinophils (%) (Auto) 2 0-10 % Basophils (%) (Auto) 1 0-10 % Neutrophils # (Auto) 3.9 1.8-7.8 X 10^3 Lymphocytes # (Auto) 0.5 L 1.0-4.0 X 10^3 Monocytes # (Auto) 0.6 0.0-1.0 X 10^3 Eosinophils # (Auto) 0.1 0.0-0.3 10^3/uL Basophils # (Auto) 0.0 0.0-0.1 10^3/uL Immature Granulocyte # (Auto) 0.0 0.0-0.1 10^3/uL Prothrombin Time 27.6 H 12.2-14.7 SEC INR Comment 2.6 H 0.8-1.4 Activated Partial Thromboplast Time 39 H 24-35 SEC D-Dimer < 0.27 0.00-0.49 UG/ML Sodium Level 134 L 135-145 MMOL/L Potassium Level 5.0 3.6-5.0 MMOL/L Chloride Level 96 L 98-107 MMOL/L Carbon Dioxide Level 28 21-32 MMOL/L Anion Gap 10 5-14 MMOL/L Blood Urea Nitrogen 8 7-18 MG/DL Creatinine 0.76 0.60-1.30 MG/DL Estimat Glomerular Filtration Rate 97 BUN/Creatinine Ratio 11 Glucose Level 101 70-105 MG/DL Calcium Level 8.7 8.5-10.1 MG/DL Corrected Calcium 8.9 8.5-10.1 MG/DL Magnesium Level 2.1 1.6-2.4 MG/DL Total Bilirubin 0.7 0.1-1.0 MG/DL Aspartate Amino Transf (AST/SGOT) 26 5-34 U/L Alanine Aminotransferase (ALT/SGPT) 20 0-55 U/L Alkaline Phosphatase 72 40-136 U/L Myoglobin 51.5 10.0-92.0 NG/ML Troponin I < 0.028 <0.028 NG/ML Total Protein 6.4 6.4-8.2 GM/DL Albumin 3.8 3.2-4.5 GM/DL Influenza Type A (RT-PCR) Not Detected Not Detecte Influenza Type B (RT-PCR) Not Detected Not Detecte SARS-CoV-2 RNA (RT-PCR) Not Detected Not Detecte My Orders Orders - JUSTEN VALENZUELA MD Cbc With Automated Diff (05/02/23 13:16) Magnesium (05/02/23 13:16) Chest 1 View, Ap/Pa Only (05/02/23 13:16) Ekg Tracing (05/02/23 13:16) Comprehensive Metabolic Panel (05/02/23 13:16) Myoglobin Serum (05/02/23 13:16) Protime With Inr (05/02/23 13:16) Partial Thromboplastin Time (05/02/23 13:16) O2 (05/02/23 13:16) Monitor-Rhythm Ecg Trace Only (05/02/23 13:16) Lipid Panel (05/03/23 06:00) Ed Iv/Invasive Line Start (05/02/23 13:16) Troponin I Ricky (05/02/23 13:16) Albuterol Hfa Inhaler (Albuterol Hfa Inh (05/02/23 13:16) Ct Head Wo-R/O Stroke (05/02/23 13:16) Covid 19 Inhouse Test (05/02/23 14:09) Influenza A And B By Pcr (05/02/23 14:09) Ct Angio Head/Neck (05/02/23 15:01) Iohexol Injection (Omnipaque 350 Mg/Ml 1 (05/02/23 15:15) Received Contrast (Hold Metformin- Contr (05/02/23 15:15) Ns (Ivpb) 100 Ml (Sodium Chloride 0.9% 1 (05/02/23 15:15) Albuterol/Ipra Inhalation Soln (Duoneb I (05/02/23 15:15) Svn Small Volume Nebulizer (05/02/23 15:09) General/Regular (05/02/23 Lunch) Fibrin Degradation Products (05/02/23 16:19) Methylprednisolone Sod Succ (Solu-Medrol (05/02/23 16:30) Ed Admission (Communication) (05/02/23 16:48) Medications Given in ED Current Medications Medications Dose Ordered Sig/Sarath Route Start Time Stop Time Status Last Admin Dose Admin Albuterol/ Ipratropium 3 ml ONCE ONCE INH 05/02/23 15:15 05/02/23 15:16 DC 05/02/23 15:31 3 ML Iohexol 100 ml ONCE ONCE IV 05/02/23 15:15 05/02/23 15:16 DC 05/02/23 15:05 75 ML Methylprednisolone Sodium Succinate 125 mg ONCE ONCE IVP 05/02/23 16:30 05/02/23 16:31 DC 05/02/23 16:55 125 MG Sodium Chloride 100 ml ONCE ONCE IV 05/02/23 15:15 05/02/23 15:16 DC 05/02/23 15:06 80 ML Vital Signs/I&O 05/02/23 05/02/23 12:55 15:31 Temp 36.6 Pulse 51 Resp 20 B/P (MAP) 130/61 (84) Pulse Ox 96 O2 Delivery Room Air Nasal Cannula O2 Flow Rate 1.00 Blood Pressure Mean: 84 Progress Progress Note #1: Time: 14:06 Progress Note Patient was interviewed and examined at 1227. CT head and labs were obtained. CT report reviewed. No significant pathology that seemed to correlate with his symptoms was noted on the CT report. Labs were evaluated and interpreted by me. CBC only demonstrated slight anemia. Chemistry studies were clinically unremarkable including CMP, troponin, and magnesium. Flu and covid swabs were negative. Albuterol inhaler was provided. Progress Note #2: Time: 16:[address] angiogram head and neck showed no significant abnormalities per radiologist's report. Patient is reporting no neurologic deficits or chest pain at this time. He had been hypoxic previously requiring 1 L of oxygen by nasal cannula even after albuterol treatment. DuoNeb treatment was then administered. He was observed off oxygen support. Unfortunately, he dropped his oxygen saturation below 88%. He was placed back on nasal cannula oxygen at 1 L/min. It would not be appropriate to send him home at this time without oxygen support. Admission for observation and treatment of COPD as well as evaluation for pulmonary embolus is now warranted. A D-dimer is pending. Progress Note #3: Time: 17:16 Progress Note D-dimer was negative. Patient is therapeutic currently on his warfarin therapy. Because patient did not recover his oxygen saturations after nebulizer treatment, he is being admitted for COPD exacerbation. Case was discussed with Dr. Omer, hospitalist. Patient declined nicotine replacement therapy. Initial ECG Impression Date: May 02, 2023 Initial ECG Impression Time: 13:23 Initial ECG Rate: 50 Initial ECG Rhythm: S.Dustin Comment Sinus bradycardia with no ST elevation or depression. No abnormal intervals or axis deviation. Diagnostic Imaging Diagonstic Imaging: CT Plain Films/CT/US/NM/MRI: head Comments NAME: AMY HALL [employer] REC#: [id number] PT STATUS: REG ER : 1955 PHYSICIAN: JUSTEN VALENZUELA MD ADMIT DATE: 05/02/23/ER Signed Date of Exam:05/02/23 CT HEAD WO-R/O STROKE PROCEDURE: CT head wo r/o stroke. TECHNIQUE: Multiple contiguous axial images were obtained through the brain without the use of intravenous contrast. Auto Exposure Controls were utilized during the CT exam to meet ALARA standards for radiation dose reduction. INDICATION: Acute neurologic deficit The ventricles are normal in size, shape and position. There are no masses or hemorrhages. There are no extra-axial fluid collections. There is an old lacunar infarct in left basal ganglia unchanged from 08/07/2017. IMPRESSION: No acute abnormality seen in head Dictated by: Dictated on workstation # [id number] Dict: 05/02/23 1339 Trans: 05/02/23 1341 TCB [id number] Interpreted by: TEJAS CRUZ MD Electronically signed by: TEJAS CRUZ MD 05/02/23 1341 Diagonstic Imaging: Xray Plain Films/CT/US/NM/MRI: chest Comments NAME: AMY HALL [employer]ence REC#: [id number] PT STATUS: REG ER : 1955 PHYSICIAN: JUSTEN VALENZUELA MD ADMIT DATE: 05/02/23/ER Signed Date of Exam:05/02/23 CHEST 1 VIEW, AP/PA ONLY INDICATION: Chest pain Portable chest at 12:39 PM There are postoperative changes from a median sternotomy. Heart size and pulmonary vascularity are normal. Lungs are clear. There are no effusions or pneumothoraces. IMPRESSION: No acute abnormalities in the chest. Dictated by: Dictated on workstation # [id number] Dict: 05/02/23 1336 Trans: 05/02/23 1341 [facility] [id number] Interpreted by: TEJAS CRUZ MD Electronically signed by: TEJAS CRUZ MD 05/02/23 1341 Departure Communication (Admissions) Time/Spoke to Admitting Phy: 16:48 Dr. Omer Impression Primary Impression: COPD exacerbation Additional Impressions: Right leg numbness Chest pain Qualified Codes: R07.9 - Chest pain, unspecified Hypoxia Disposition: ADMITTED INPATIENT Condition: Stable Admissions Decision to Admit Reason: Admit from ER (General) Decision to Admit/Date: May 02, 2023 Time/Decision to Admit Time: 16:48 Departure-Patient Inst. Referrals: NO,LOCAL PHYSICIAN (PCP/Family) Primary Care Physician Scripts Prednisone (Prednisone) 10 Mg Tab.ds.pk 10 MG PO DAILY, #21 EA Take 6 tabs(60mg)daily,decrease by 1 tab(10MG)daily. Prov: MIKAELA OMER MD 05/04/23 JUSTEN VALENZUELA MD May 02, 2023 14:01
[2023-05-02 14:07] LABS: ALBUMIN 3.8 GM/DL (3.2-4.5); CHLORIDE 96 MMOL/L (98-107); INR 2.6 (0.8-1.4); PROTHROMBIN TIME PATIENT 27.6 SEC (12.2-14.7); SODIUM 134 MMOL/L (135-145)
[2023-05-02 14:08] LABS: CALCIUM 8.7 MG/DL (8.5-10.1)
[2023-05-02 14:09] LABS: GLUCOSE 101 MG/DL (70-105); TOTAL PROTEIN 6.4 GM/DL (6.4-8.2)
[2023-05-02 14:10] LABS: CARBON DIOXIDE 28 MMOL/L (21-32)
[2023-05-02 14:11] LABS: BILIRUBIN,TOTAL 0.7 MG/DL (0.1-1.0)
[2023-05-02 14:13] LABS: ALKALINE PHOSPHATASE 72 U/L (40-136); CREATININE SERUM 0.76 MG/DL (0.60-1.30); GFR ESTIMATED 97
[2023-05-02 14:14] LABS: BUN/CREATININE RATIO 11
[2023-05-02 14:16] LABS: ALANINE AMINOTRANSFERASE 20 U/L (0-55); MAGNESIUM 2.1 MG/DL (1.6-2.4)
[2023-05-02] MEDS ORDERED: RT-Ipratropium/Albuterol NEB 3 ML VIAL INH ONE (15:15)
[2023-05-02] MEDS ORDERED: HOLD METFORMIN - RECEIVED CONTRAST 20 ML VIAL IV SCH (15:15)
[2023-05-02] MEDS ORDERED: IOHEXOL 350 MG/ML 100 ML (OMNIPAQUE 350) VIAL IV ONE (15:15)
[2023-05-02] MEDS ORDERED: NS 100 ML (IVPB) BAG IV ONE (15:15)
--- NOTE | 2023-05-02 15:35 | Diagnostic Imaging Report ---
PROCEDURE: CT angiography of the head and CT angiography of the neck with and without contrast. TECHNIQUE: Contiguous noncontrast images were obtained from the skull base through the vertex. After intravenous contrast administration, helical CT angiography of the neck was performed. Source data was reformatted into 3D MIP projections. Delayed post contrast acquisition was also obtained. Auto Exposure Controls were utilized during the CT exam to meet ALARA standards for radiation dose reduction. INDICATION: Right leg paresthesia. FINDINGS: There is right apical scarring. There are emphysematous changes present. The right common, internal and external carotid arteries are widely patent. The left common, internal and external carotid arteries are widely patent. There is some atherosclerotic plaque in the carotid bulbs, bilaterally. Both vertebral arteries are patent with left-sided pain dominant. The basilar artery is supplied exclusively by the left vertebral artery. The right vertebral artery terminates in the right posterior inferior cerebellar artery. The basilar artery and branches are widely patent. Anterior, middle and posterior cerebral arteries appear to be widely patent. There is no aneurysm or large vessel occlusion seen. Postcontrast images do not show any abnormal areas of enhancement. IMPRESSION: There is atherosclerotic plaque in the carotid bulbs, bilaterally. There is no occlusion or hemodynamically significant stenosis seen in the head or neck. Dictated by: Dictated on workstation # [id number]
[2023-05-02] MEDS ORDERED: methylPREDNISolone INJ 125 MG VIAL IVP ONE (16:30)
[2023-05-02] MEDS ORDERED: ONDANSETRON 4 MG (ZOFRAN) ORAL DISSOLVE TAB PO PRN (18:00)
[2023-05-02] MEDS ORDERED: ONDANSETRON 4 MG/2 ML (SDV) Z0FRAN IV PRN (18:00)
[2023-05-02] MEDS ORDERED: polyethylene glycoL POWDER 17 GM (MIRALAX) PACK PO PRN (18:00)
[2023-05-02] MEDS ORDERED: ANTACID SUSPENSION 30 ML UDC PO PRN (18:00)
[2023-05-02] MEDS ORDERED: BISACODYL 10 MG SUPPOSITORY PR PRN (18:00)
[2023-05-02] MEDS ORDERED: ACETAMINOPHEN 325 MG TABLET PO PRN (18:00)
[2023-05-02] MEDS ORDERED: LACTULOSE SYRUP 10GM/15ML 30ML UDC PO PRN (18:00)
[2023-05-02] MEDS ORDERED: MILK OF MAGNESIA 400 MG/5 ML 30 ML UDC PO PRN (18:00)
[2023-05-02] MEDS ORDERED: MELATONIN 3 MG TABLET PO PRN (18:00)
[2023-05-02] MEDS ORDERED: CALCIUM CARBONATE 500 MG CHEW TABLET PO PRN (18:00)
[2023-05-02 18:11] VITALS: BP 150/66
[2023-05-02 18:42] VITALS: BP 150/66
[2023-05-02] MEDS ORDERED: RT-Ipratropium/Albuterol NEB 3 ML VIAL INH PRN (19:00)
[2023-05-02] MEDS ORDERED: carvediloL 12.5 MG TABLET PO SCH (19:00)
[2023-05-02 20:00] VITALS: BP 125/61
[2023-05-02] MEDS: ROSUVASTATIN 10 MG (CRESTOR) TABLET PO SCH (20:08)
[2023-05-02] MEDS: DONEPEZIL 10 MG TABLET PO SCH (20:08)
[2023-05-02] MEDS: DOCUSATE SODIUM 100 MG CAPSULE PO SCH (20:21)
[2023-05-02] MEDS: SENNOSIDES 8.6 MG (SENOKOT) TAB PO SCH (20:21)
[2023-05-02 23:37] VITALS: BP 134/68
[2023-05-03 04:40] VITALS: BP 126/61
[2023-05-03] MEDS: predniSONE 20 MG TAB PO SCH (05:10)
[2023-05-03 05:30] LABS: CHOLESTEROL 160 MG/DL (< 200); HDL CHOLESTEROL 87 MG/DL (40-60); TRIGLYCERIDES 34 MG/DL (<150); VLDL CHOLESTEROL 7 MG/DL (5-40)
[2023-05-03 07:36] VITALS: BP 139/72
[2023-05-03] MEDS ORDERED: UMECLIDINIUM BROMIDE (INCRUSE ELLIPTA) 7'S IH SCH (08:00)
[2023-05-03] MEDS: TIOTROPIUM INH 4 GM (SPIRIVA Respimat) IH SCH (08:08)
[2023-05-03] MEDS: hydrOXYzine 10 MG TABLET PO SCH (08:37)
[2023-05-03] MEDS: amLODIPine 10 MG TABLET PO SCH (08:37)
[2023-05-03] MEDS: DOCUSATE SODIUM 100 MG CAPSULE PO SCH ×2 (08:39→19:47)
[2023-05-03] MEDS: SENNOSIDES 8.6 MG (SENOKOT) TAB PO SCH ×2 (08:39→19:47)
[2023-05-03 11:43] VITALS: BP 128/63
[2023-05-03 15:15] VITALS: BP 137/66
--- NOTE | 2023-05-03 17:01 | History & Physical-Hospitalist ---
History of Present Illness HPI/Chief Complaint Edy Chacon is a 67 year old male with PMH HTN, HLD, AFib, mechanical aortic valve on coumadin, dementia, COPD, who presented with right leg numbness. He thinks it may have been because of how he was sitting. The numbness has resolved and has not recurred. He also had a brief episode of chest pain which also resolved. He was found to be hypoxic. He denies shortness of breath. He denies cough. He reportedly qualified for home oxygen at his primary care doctors office but it has not yet been delivered to his home. Source: patient Exam Limitations: no limitations Date Seen 05/03/23 Time Seen by a Provider: 10:20 Attending Physician No,Local Physician PCP Admitting Physician: Kylah Omer MD Attending Physician: Kylah Omer MD Referring Physician Date of Admission May 02, 2023 at 17:47 Home Medications & Allergies Home Medications Reviewed patient Home Medication Reconciliation performed by pharmacy medication reconciliations agriculture technician and/or nursing. Patients Allergies have been reviewed. Allergies Allergies Coded Allergies No Known Drug Allergies (Unverified05/02/23) Past Jqgkmrw-Thdhhc-Ckmbto Hx Patient Social History Tobacco Use?: Yes Tobacco type used: Cigarettes Smoking Status: Current Everyday Smoker Use of E-Cig and/or Vaping dev: No Substance use?: No Alcohol Use?: No Pt feels they are or have been: No Immunizations Up To Date First/Initial COVID19 Vaccinat: "i dont know" Tetanus Booster (TDap): Unknown Seasonal Allergies Seasonal Allergies: No Current Status Advance Directives: No Communicates: Verbally Primary Language: Korean Preferred Spoken Language: Korean Is interpretation needed?: No Implanted or Applied Medical D: Heart mechanical device, Orthopedic hardware Past Medical History Surgeries: Appendectomy, Orthopedic, Valve Replacement (Metallic aortic valve) Atrial Fibrillation, Cardiomyopathy, High Cholesterol, Hypertension, Valvular Heart Disease Sexually Transmitted Disease: No HIV/AIDS: No Hiatal Hernia, Ulcer Fractures Blood Disorders: No Adverse Reaction/Blood Tranf: No Family Medical History FH: COPD (chronic obstructive pulmonary disease) 19 MOTHER Review of Systems Constitutional: no symptoms reported Respiratory: wheezing Cardiovascular: chest pain Gastrointestinal: no symptoms reported Psychiatric/Neurological: Numbness Physical Exam Physical Exam Vital Signs Vital Signs - First Documented 05/02/23 05/02/23 12:55 14:00 Temp 36.6 Pulse 51 Resp 20 B/P (MAP) 130/61 (84) Pulse Ox 96 O2 Delivery Room Air O2 Flow Rate 1.00 Capillary Refill : Less Than 3 Seconds Height, Weight, BMI Height: 6'2.00" Weight: 185lbs. 8.0oz. 84.908096mq; 21.58 BMI Method:Stated General Appearance: No Apparent Distress, WD/WN HEENT: PERRL/EOMI, Pharynx Normal Neck: Normal Inspection, Supple Respiratory: No Respiratory Distress, Wheezing Cardiovascular: Regular Rate, Rhythm, No Murmur Gastrointestinal: Normal Bowel Sounds, Non Tender, Soft Extremity: Normal Inspection, No Pedal Edema Neurologic/Psychiatric: Alert, No Motor/Sensory Deficits, Normal Mood/Affect Skin: Normal Color, Warm/Dry Results Results/Procedures Labs Laboratory Tests 05/02/23 13:28 Patient resulted labs reviewed. Imaging: Reviewed Imaging Report Assessment/Plan Admission Diagnosis COPD exacerbation Admission Status: Observation Assessment and Plan COPD exacerbation Chronic respiratory failure with hypoxia Prednisone MAT protocol Social work consulted Home oxygen evaluation HTN HLD Dementia AFib Mechanical aortic valve on coumadin Continue home meds Diagnosis/Problems Diagnosis/Problems (1) COPD exacerbation Status: Acute (2) Right leg numbness Status: Resolved Resolution Date/Time: 05/03/23 @ 17:04 (3) Chest pain Status: Resolved Qualifiers: Chest pain type: unspecified Qualified Codes: R07.9 - Chest pain, unspecified Resolution Date/Time: 05/03/23 @ 17:04 KYLAH OMER MD May 03, 2023 17:01
[2023-05-03 19:10] VITALS: BP 144/70
[2023-05-03] MEDS: ROSUVASTATIN 10 MG (CRESTOR) TABLET PO SCH (19:46)
[2023-05-03] MEDS: DONEPEZIL 10 MG TABLET PO SCH (19:46)
[2023-05-03] MEDS ORDERED: warFARin 10 MG (COUMADIN) TAB PO SCH (21:00)
[2023-05-03 23:02] VITALS: BP 138/75
[2023-05-04] MEDS: predniSONE 20 MG TAB PO SCH (05:52)
[2023-05-04 07:36] VITALS: BP 164/70
[2023-05-04] MEDS: TIOTROPIUM INH 4 GM (SPIRIVA Respimat) IH SCH (08:14)
[2023-05-04] MEDS: hydrOXYzine 10 MG TABLET PO SCH (09:14)
[2023-05-04] MEDS: DOCUSATE SODIUM 100 MG CAPSULE PO SCH (09:15)
[2023-05-04] MEDS: amLODIPine 10 MG TABLET PO SCH (09:15)
[2023-05-04] MEDS: SENNOSIDES 8.6 MG (SENOKOT) TAB PO SCH (09:15)
[2023-05-04 09:17] VITALS: BP 134/66
[2023-05-04] MEDS ORDERED: FLUT1BLS3 IH (09:52)
[2023-05-04 11:33] VITALS: BP 145/73
[2023-05-04] MEDS ORDERED: PRED10TA22 PO (11:47)
--- NOTE | 2023-05-04 14:00 | Discharge Summary ---
Discharge Summary Hospital Course Problems/Dx: (1) COPD exacerbation Status: Acute (2) Right leg numbness Status: Resolved (3) Chest pain Status: Resolved Qualifiers: Qualified Codes: R07.9 - Chest pain, unspecified Hospital Course Date of Admission: May 02, 2023 at 17:47 Admission Diagnosis : COPD exacerbation Family Physician/Provider: Arnie Lipscomb Physician Date of Discharge: 05/04/23 Discharge Diagnosis: COPD exacerbation Hospital Course: Kameron Chacon is a 67 year old male who presented with leg numbness and chest pain. The numbness was brief and occured after sitting on the toilet. He also had a brief episode of chest pain which resolved spontaneously. Neither of these symptoms recurred. He was also found to have wheezing. He was hypoxic. He was treated for COPD exacerbation. He was given a course of steroids. He was set up with home oxygen. He was discharged home in stable condition. Labs and Pending Lab Test: Home Meds Active Prednisone 10 Mg Tab.ds.pk 10 Mg PO DAILY Take 6 tabs(60mg)daily,decrease by 1 tab(10MG)daily. Reported Trelegy Ellipta 100-62.5-25 (Fluticasone/Umeclidin/Vilanter) 100-62.5 Blst.w.dev 1 Each IH BID Warfarin Sodium 10 Mg Tablet 10 Mg PO SAT,THU,TU,THU, Warfarin Sodium 10 Mg Tablet 5 Mg PO MON,FRI TAKES 1/2 OF (10MG) TAB Rosuvastatin Calcium 10 Mg Tablet 10 Mg PO HS Donepezil HCl 10 Mg Tablet 10 Mg PO HS Escitalopram Oxalate 10 Mg Tablet 10 Mg PO HS Carvedilol 12.5 Mg Tablet 12.5 Mg PO BID Amlodipine Besylate 10 Mg Tablet 10 Mg PO DAILY Omeprazole 20 Mg Capsule. 20 Mg PO DAILY Multivitamins (Multivitamin) 1 Each Tablet 1 Tab PO DAILY Fish Oil 1,200 mg Fish Oil (Fish Oil/Dha/Epa) 1 Each Capsule 1,200 Mg PO DAILY Aspirin EC (Aspirin) 81 Mg Tablet. 81 Mg PO DAILY Lisinopril 40 Mg Tablet 40 Mg PO DAILY Assessment/Pt Instructions See instructions Discharge Planning: >30 minutes discharge planning Discharge Instructions Discharge Diet: No Restrictions Activity as Tolerated: Yes Discharge Physical Examination Vital Signs Vital Signs Date Time Temp Pulse Resp B/P (MAP) Pulse Ox O2 Delivery O2 Flow Rate FiO2 8/7/23 11:33 37.2 55 18 145/73 (97) 93 Room Air 05/04/23 08:17 2.00 General Appearance: No Apparent Distress, WD/WN Respiratory: No Respiratory Distress, Wheezing Cardiovascular: Regular Rate, Rhythm, No Murmur Gastrointestinal: Normal Bowel Sounds, Soft Extremity: Normal Inspection, No Pedal Edema Skin: Normal Color, Warm/Dry Neurologic/Psychiatric: Alert, No Motor/Sensory Deficits Allergies: Coded Allergies: No Known Drug Allergies (Unverified , 05/02/23) Discharge Summary Date of Admission May 02, 2023 at 17:47 Date of Discharge Discharge Date: May 04, 2023 Discharge Time: 13:57 Admission Diagnosis COPD exacerbation Discharge Diagnosis COPD exacerbation Chronic respiratory failure with hypoxia HTN HLD Dementia AFib Mechanical aortic valve on coumadin (1) COPD exacerbation Status: Acute (2) Right leg numbness Status: Resolved (3) Chest pain Status: Resolved Qualifiers: Qualified Codes: R07.9 - Chest pain, unspecified MIKAELA OMER MD May 04, 2023 14:00
[2023-05-04 15:29] VITALS: BP 145/73
[2023-05-04] MEDS ORDERED: warFARin 5 MG (COUMADIN) TAB PO SCH (18:00)
== END 2023-05-04 11:46 | disposition home or self-care (01) ==
LOC: EDUNIT# 12:54 → ER 12:55 → UNDOADMOB 17:47 → 4TH 17:47 → UNDODISOB 05-04 11:46
PROVIDERS: ADMIT Internal Medicine; ATTEND Internal Medicine
DX: J44.1 Chronic obstructive pulmonary disease with (acute) exacerbation (principal); J96.11 Chronic respiratory failure with hypoxia; I10 Essential (primary) hypertension; I48.91 Unspecified atrial fibrillation; E78.5 Hyperlipidemia, unspecified; F03.90 Unspecified dementia, unspecified severity, without behavioral disturbance, psychotic disturbance, mood disturbance, and anxiety; F17.210 Nicotine dependence, cigarettes, uncomplicated; Z95.2 Presence of prosthetic heart valve; Z79.899 Other long term (current) drug therapy; Z79.01 Long term (current) use of anticoagulants; Z91.199 Patient's noncompliance with other medical treatment and regimen due to unspecified reason; Z79.82 Long term (current) use of aspirin
CPT/HCPCS: 70450; 70496; 70498; 71045; 80053; 80061; 83735; 83874; 84484; 85025; 85379; 85610; 85730; 87636; 93005; 93041; 94640 ×3; 94761; 96374; 99284; G0378; 36415

== ENCOUNTER 2023-07-03 14:14 | Observation (INO) | payer MEDICARE ==
[~2023-07-03] VITALS: Ht 175 cm; Wt 67.2 kg
[~2023-07-03 14:14] MED LIST changes: +FLUT1BLS3 IH; +PRED10TA22 PO
--- NOTE | 2023-07-03 14:26 | ED General ---
General Chief Complaint: Dizziness/Syncope Stated Complaint: DIZZINESS Source of Information: Patient, EMS Exam Limitations: No Limitations History of Present Illness Date Seen by Provider: Jul 03, 2023 Time Seen by Provider: 14:16 Initial Comments 68-year-old male presents to the emergency department via [facility] for what he describes as dizziness. He states he was on the couch and got up, walked across the room and poured himself more coffee. When he started to walk back towards his chair he got lightheaded feeling as though he may pass out. He tells me he got sweaty and had a pain in his right shoulder at that time as well. Symptoms lasted for about 3 to 4 minutes. On arrival he states he feels slightly lightheaded but nothing like what he did during that event. He has had a similar event happen a couple times over the last couple of years but has yet to have been evaluated for it. The patient tells me he is a patient of Dr. Gutierrez but he does not know what exactly he is seen for. Record review shows he has a history of congestive heart failure as well as atrial fibrillation. He is on Coumadin. EMS reports stable vital signs in route outside of slightly low heart rate, 55. All other systems reviewed and negative except documented per HPI. Voice recognition software was used to help create this chart Allergies and Home Medications Allergies Coded Allergies: No Known Drug Allergies (Unverified , 05/02/23) Patient Home Medication List Home Medication List Reviewed: Yes Amlodipine Besylate (Amlodipine Besylate) 10 Mg Tablet, 10 MG PO DAILY, (Reported) Entered as Reported by: KURT MONET on 06/09/22 08 Aspirin (Aspirin EC) 81 Mg Tablet.dr, 81 MG PO DAILY, (Reported) Entered as Reported by: PHYLLIS BRONSON on 07/27/17 1720 Carvedilol (Carvedilol) 12.5 Mg Tablet, 12.5 MG PO BID, (Reported) Entered as Reported by: KURT MONET on 06/09/22 08 Donepezil HCl (Donepezil HCl) 10 Mg Tablet, 10 MG PO HS, (Reported) Entered as Reported by: KURT MONET on 06/09/22 08 Escitalopram Oxalate (Escitalopram Oxalate) 10 Mg Tablet, 10 MG PO HS, (Reported) Entered as Reported by: KURT MONET on 06/09/22801 Fish Oil/Dha/Epa (Fish Oil 1,200 mg Fish Oil) 1 Each Capsule, 1,200 MG PO DAILY, (Reported) Entered as Reported by: PHYLLIS BRONSON on 07/27/17 172 Fluticasone/Umeclidin/Vilanter (Trelegy Ellipta 100-62.5-25) 100-62.5 Blst.w.dev, 1 EACH IH BID, (Reported) Entered as Reported by: JENNI DAMON on 05/04/23 0952 Lisinopril (Lisinopril) 40 Mg Tablet, 40 MG PO DAILY, (Reported) Entered as Reported by: PHYLLIS BRONSON on 07/27/17 170 Multivitamin (Multivitamins) 1 Each Tablet, 1 TAB PO DAILY, (Reported) Entered as Reported by: PHYLLIS BRONSON on 07/27/171719 Omeprazole (Omeprazole) 20 Mg Capsule.dr, 20 MG PO DAILY, (Reported) Entered as Reported by: KURT MONET on 06/09/22801 Prednisone (Prednisone) 10 Mg Tab.ds.pk, 10 MG PO DAILY Prescribed by: MIKAELA OMER on 05/04/23 1147 Rosuvastatin Calcium (Rosuvastatin Calcium) 10 Mg Tablet, 10 MG PO HS, (Reported) Entered as Reported by: KURT MONET on 06/09/22801 Warfarin Sodium (Warfarin Sodium) 10 Mg Tablet, 5 MG PO MON,FRI, (Reported) Entered as Reported by: KURT MONET on 06/09/22801 Warfarin Sodium (Warfarin Sodium) 10 Mg Tablet, 10 MG PO SAT,SUN,,THU,, (Reported) Entered as Reported by: KURT MONET on 06/09/22801 Review of Systems Review of Systems Constitutional: see HPI Past Jzbfkic-Ptpiqe-Uzielb Hx Patient Social History Tobacco Use?: Yes Tobacco type used: Cigarettes Use of E-Cig and/or Vaping dev: No Substance use?: No Alcohol Use?: No Immunizations Up To Date Tetanus Booster (TDap): Unknown First/Initial COVID19 Vaccinat: "i dont know" Seasonal Allergies Seasonal Allergies: No Past Medical History Surgery/Hospitalization HX: None Surgeries: Yes Appendectomy, Orthopedic, Valve Replacement Respiratory: No Cardiac: Yes (CHF; AORTIC STENOSIS--S/P MECHANICAL VALVE REPLACEMENT 2014) Atrial Fibrillation, Cardiomyopathy, High Cholesterol, Hypertension, Valvular Heart Disease Neurological: No Reproductive Disorders: No Sexually Transmitted Disease: No HIV/AIDS: No Gastrointestinal: Yes Hiatal Hernia, Ulcer Musculoskeletal: Yes Fractures Endocrine: No HEENT: No Cancer: No Psychosocial: No Integumentary: No Blood Disorders: No Adverse Reaction/Blood Tranf: No Family Medical History FH: COPD (chronic obstructive pulmonary disease) 19 MOTHER Physical Exam Vital Signs Vital Signs - First Documented 07/03/23 14:45 Pulse 59 Resp 20 B/P (MAP) 136/67 (90) Pulse Ox 92 O2 Delivery Room Air Capillary Refill : Height, Weight, BMI Height: 6'2.00" Weight: 185lbs. 8.0oz. 84.164184lo; 21.58 BMI Method:Stated General Appearance: No Apparent Distress, WD/WN HEENT: Normal ENT Inspection, Pharynx Normal Neck: Normal Inspection, Non Tender, Supple Respiratory: Chest Non Tender, No Accessory Muscle Use, No Respiratory Distress, Wheezing (Diffuse inspiratory and expiratory wheezing) Cardiovascular: Regular Rate, Rhythm, No Murmur, Normal Peripheral Pulses Gastrointestinal: Normal Bowel Sounds, No Organomegaly, Soft Back: Normal Inspection, No Vertebral Tenderness Extremity: Normal Capillary Refill, Normal Range of Motion, Non Tender, No Calf Tenderness, Pedal Edema (Trace pretibial edema bilaterally) Neurologic/Psychiatric: Alert, Oriented x3 Skin: Warm/Dry, Other (Diffuse petechial rash bilateral lower extremities which the patient states is chronic over several years) Progress/Results/Core Measures Suspected Sepsis SIRS Temperature: Pulse: Respiratory Rate: Laboratory Tests 07/03/23 14:23: White Blood Count 6.3 Blood Pressure / Mean: Laboratory Tests 07/03/23 14:23: INR Comment 5.4*H, Platelet Count 274 07/03/23 14:42: Creatinine 0.76, Total Bilirubin 1.0 Results/Orders Lab Results Laboratory Tests Test 07/03/23 14:23 07/03/23 14:28 07/03/23 14:42 Range/Units White Blood Count 6.3 4.3-11.0 10^3/uL Red Blood Count 4.47 4.30-5.52 10^6/uL Hemoglobin 13.9 13.3-17.7 g/dL Hematocrit 42 40-54 % Mean Corpuscular Volume 95 80-99 fL Mean Corpuscular Hemoglobin 31 25-34 pg Mean Corpuscular Hemoglobin Concent 33 32-36 g/dL Red Cell Distribution Width 14.8 H 10.0-14.5 % Platelet Count 274 130-400 10^3/uL Mean Platelet Volume 9.9 9.0-12.2 fL Immature Granulocyte % (Auto) 2 % Neutrophils (%) (Auto) 73 42-75 % Lymphocytes (%) (Auto) 12 12-44 % Monocytes (%) (Auto) 9 0-12 % Eosinophils (%) (Auto) 3 0-10 % Basophils (%) (Auto) 1 0-10 % Neutrophils # (Auto) 4.6 1.8-7.8 10^3/uL Lymphocytes # (Auto) 0.7 L 1.0-4.0 10^3/uL Monocytes # (Auto) 0.6 0.0-1.0 10^3/uL Eosinophils # (Auto) 0.2 0.0-0.3 10^3/uL Basophils # (Auto) 0.1 0.0-0.1 10^3/uL Immature Granulocyte # (Auto) 0.1 0.0-0.1 10^3/uL Prothrombin Time 48.1 *H 12.2-14.7 SEC INR Comment 5.4 *H 0.8-1.4 Urine Color YELLOW Urine Clarity CLEAR Urine pH 7.0 5-9 Urine Specific [place] 1.015 L 1.016-1.022 Urine Protein NEGATIVE NEGATIVE Urine Glucose (UA) NEGATIVE NEGATIVE Urine Ketones NEGATIVE NEGATIVE Urine Nitrite NEGATIVE NEGATIVE Urine Bilirubin NEGATIVE NEGATIVE Urine Urobilinogen 0.2 < = 1.0 MG/DL Urine Leukocyte Esterase NEGATIVE NEGATIVE Urine RBC (Auto) NEGATIVE NEGATIVE Urine RBC RARE /HPF Urine WBC RARE /HPF Urine Crystals NONE /LPF Urine Leucine Crystals /LPF Urine Bacteria NEGATIVE /HPF Urine Casts NONE /LPF Urine Mucus NEGATIVE /LPF Urine Culture Indicated NO Sodium Level 135 135-145 MMOL/L Potassium Level 4.5 3.6-5.0 MMOL/L Chloride Level 92 L 98-107 MMOL/L Carbon Dioxide Level 32 21-32 MMOL/L Anion Gap 11 5-14 MMOL/L Blood Urea Nitrogen 10 7-18 MG/DL Creatinine 0.76 0.60-1.30 MG/DL Estimat Glomerular Filtration Rate 97 BUN/Creatinine Ratio 13 Glucose Level 94 70-105 MG/DL Calcium Level 8.8 8.5-10.1 MG/DL Corrected Calcium 8.8 8.5-10.1 MG/DL Total Bilirubin 1.0 0.1-1.0 MG/DL Aspartate Amino Transf (AST/SGOT) 22 5-34 U/L Alanine Aminotransferase (ALT/SGPT) 20 0-55 U/L Alkaline Phosphatase 87 40-136 U/L Troponin I < 0.028 <0.028 NG/ML Total Protein 6.9 6.4-8.2 GM/DL Albumin 4.0 3.2-4.5 GM/DL My Orders Orders - REMYLOVE DO Comprehensive Metabolic Panel (07/03/23 14:24) Ua Culture If Indicated (07/03/23 14:24) Ekg Tracing (07/03/23 14:24) Troponin I [place] (07/03/23 14:24) Cbc And Automated Diff (07/03/23 14:24) Chest 1 View, Ap/Pa Only (07/03/23 14:24) Protime With Inr (07/03/23 14:27) Ct Head Wo (07/03/23 16:23) Vital Signs/I&O 07/03/23 07/03/23 14:45 15:44 Pulse 59 59 Resp 20 16 B/P (MAP) 136/67 (90) 136/67 (90) Pulse Ox 92 92 O2 Delivery Room Air Room Air Capillary Refill : ECG Comment Sinus bradycardia with a rate of 51 bpm. Normal intervals. Left axis deviation. There is ST depression in V5 V6 similar to comparison last month. No STEMI. No ectopy. Departure Communication (Admissions) Patient is hemodynamically stable outside of bradycardia. The lowest heart rate have seen is 42. Blood pressure has been stable for the duration of emergency department stay. CT head negative for any acute intracranial abnormality, obtained due to elevated INR and lightheadedness. No evidence for active bleeding, no indication for vitamin K. He is on carvedilol as well as amlodipine, probably causing his bradycardic episodes. I think bradycardia is likely what caused his near syncope today. Without I spoke Dr. Hill who accepts the patient in admission at this time. Spoke with Dr. Watters who agrees with current plan of care, request hold beta-marquez and amlodipine at present. We will also hold warfarin until INR returns to therapeutic range. Impression Primary Impression: Bradycardia Additional Impressions: Near syncope Elevated INR Disposition: ADMITTED INPATIENT Condition: Stable Admissions Decision to Admit Reason: Admit from ER (General) Departure-Patient Inst. Referrals: NO,LOCAL PHYSICIAN (PCP/Family) Primary Care Physician LOVE ALBERTO DO Jul 03, 2023 14:26
[2023-07-03 14:45] LABS: BASOPHILS # (AUTO) 0.1 10^3/uL (0.0-0.1); BASOPHILS % (AUTO) 1 % (0-10); EOSINOPHILS # (AUTO) 0.2 10^3/uL (0.0-0.3); EOSINOPHILS % (AUTO) 3 % (0-10); HEMATOCRIT 42 % (40-54); HEMOGLOBIN 13.9 g/dL (13.3-17.7); LYMPHOCYTES # (AUTO) 0.7 10^3/uL (1.0-4.0); LYMPHOCYTES % (AUTO) 12 % (12-44); MEAN CORPUSCULAR HEMOGLOBIN 31 pg (25-34); MEAN CORPUSCULAR HGB CONC 33 g/dL (32-36); MEAN CORPUSCULAR VOLUME 95 fL (80-99); MEAN PLATELET VOLUME 9.9 fL (9.0-12.2); MONOCYTES # (AUTO) 0.6 10^3/uL (0.0-1.0); MONOCYTES % (AUTO) 9 % (0-12); NEUTROPHILS # (AUTO) 4.6 10^3/uL (1.8-7.8); NEUTROPHILS % (AUTO) 73 % (42-75); PLATELET COUNT 274 10^3/uL (130-400); WHITE BLOOD COUNT 6.3 10^3/uL (4.3-11.0)
[2023-07-03 14:46] LABS: BACTERIA,URINE NEGATIVE /HPF; BILIRUBIN,URINE NEGATIVE (NEGATIVE); CLARITY,URINE CLEAR; COLOR,URINE YELLOW; GLUCOSE, URINE (UA) NEGATIVE (NEGATIVE); KETONES,URINE NEGATIVE (NEGATIVE); LEUKOCYTE ESTERASE ,URINE NEGATIVE (NEGATIVE); NITRITE,URINE NEGATIVE (NEGATIVE); PROTEIN,URINE NEGATIVE (NEGATIVE); RBC,URINE RARE /HPF; WBC,URINE RARE /HPF
[2023-07-03 14:58] LABS: CHLORIDE 92 MMOL/L (98-107); POTASSIUM 4.5 MMOL/L (3.6-5.0); SODIUM 135 MMOL/L (135-145)
[2023-07-03 14:58] LABS: INR 5.4 (0.8-1.4); PROTHROMBIN TIME PATIENT 48.1 SEC (12.2-14.7)
[2023-07-03 14:59] LABS: CALCIUM 8.8 MG/DL (8.5-10.1)
[2023-07-03 15:00] LABS: GLUCOSE 94 MG/DL (70-105); TOTAL PROTEIN 6.9 GM/DL (6.4-8.2)
[2023-07-03 15:01] LABS: CARBON DIOXIDE 32 MMOL/L (21-32)
[2023-07-03 15:04] LABS: ALKALINE PHOSPHATASE 87 U/L (40-136); CREATININE SERUM 0.76 MG/DL (0.60-1.30); GFR ESTIMATED 97
[2023-07-03 15:05] LABS: BUN/CREATININE RATIO 13
[2023-07-03 15:07] LABS: ALANINE AMINOTRANSFERASE 20 U/L (0-55)
--- NOTE | 2023-07-03 15:20 | Diagnostic Imaging Report ---
INDICATION: Near syncope. COMPARISON: 05/02/2023 and also correlated with a chest CT performed on 07/28/2018. FINDINGS: The chronic 1.9 cm right lower lobe lung mass has not significantly changed from the remote CT and presumed benign. No new lung mass. No pneumonia, failure, effusion, or pneumothorax. IMPRESSION: Chronic right lower lobe lung mass. Clear lungs. Dictated by: Dictated on workstation # [id number]
--- NOTE | 2023-07-03 16:44 | Diagnostic Imaging Report ---
PROCEDURE: CT head without contrast. TECHNIQUE: Multiple contiguous axial images were obtained through the brain without the use of intravenous contrast. Auto Exposure Controls were utilized during the CT exam to meet ALARA standards for radiation dose reduction. INDICATION: Syncope, dizziness, anticoagulation The ventricles are normal in size, shape and position. There are no masses or hemorrhages. There are no extra-axial fluid collections. IMPRESSION: Negative CT head Dictated by: Dictated on workstation # [id number]
[2023-07-03 17:50] VITALS: BP 133/68
[2023-07-03] MEDS ORDERED: CATHETER FLUSH 10 ML SYR IVP PRN (18:30)
[2023-07-03] MEDS ORDERED: RT-Ipratropium/Albuterol NEB 3 ML VIAL IH PRN (18:30)
[2023-07-03 20:00] VITALS: BP 102/44
[2023-07-03] MEDS: RT-Ipratropium/Albuterol NEB 3 ML VIAL INH SCH (20:14)
[2023-07-03] MEDS: CATHETER FLUSH 10 ML SYR IVP SCH (23:55)
[2023-07-04] VITALS: BP 96/47
[2023-07-04] MEDS: RT-Ipratropium/Albuterol NEB 3 ML VIAL INH SCH ×4 (02:49→21:32)
[2023-07-04 04:00] VITALS: BP 129/69
[2023-07-04 05:07] LABS: BASOPHILS # (AUTO) 0.1 10^3/uL (0.0-0.1); BASOPHILS % (AUTO) 1 % (0-10); EOSINOPHILS # (AUTO) 0.2 10^3/uL (0.0-0.3); EOSINOPHILS % (AUTO) 3 % (0-10); HEMATOCRIT 40 % (40-54); HEMOGLOBIN 13.1 g/dL (13.3-17.7); LYMPHOCYTES # (AUTO) 0.8 10^3/uL (1.0-4.0); LYMPHOCYTES % (AUTO) 14 % (12-44); MEAN CORPUSCULAR HEMOGLOBIN 31 pg (25-34); MEAN CORPUSCULAR HGB CONC 33 g/dL (32-36); MEAN CORPUSCULAR VOLUME 95 fL (80-99); MEAN PLATELET VOLUME 9.8 fL (9.0-12.2); MONOCYTES # (AUTO) 0.7 10^3/uL (0.0-1.0); MONOCYTES % (AUTO) 13 % (0-12); NEUTROPHILS # (AUTO) 3.9 10^3/uL (1.8-7.8); NEUTROPHILS % (AUTO) 69 % (42-75); PLATELET COUNT 238 10^3/uL (130-400); WHITE BLOOD COUNT 5.7 10^3/uL (4.3-11.0)
[2023-07-04] MEDS: CATHETER FLUSH 10 ML SYR IVP SCH ×2 (05:16→14:40)
[2023-07-04 05:27] LABS: POTASSIUM 4.5 MMOL/L (3.6-5.0)
[2023-07-04 05:28] LABS: CALCIUM 8.4 MG/DL (8.5-10.1)
[2023-07-04 05:32] LABS: CREATININE SERUM 0.83 MG/DL (0.60-1.30)
[2023-07-04 08:00] VITALS: BP_SYST 111; BP_SYST 112; BP_DIAS 55; BP_DIAS 56
--- NOTE | 2023-07-04 11:43 | History & Physical-Hospitalist ---
History of Present Illness HPI/Chief Complaint 68-year-old male presents to the emergency department via [facility] for what he describes as dizziness. He states he was on the couch and got up, walked across the room and poured himself more coffee. When he started to walk back towards his chair he got lightheaded feeling as though he may pass out. He tells me he got sweaty and had a pain in his right shoulder at that time as well. Symptoms lasted for about 3 to 4 minutes. On arrival he states he feels slightly lightheaded but nothing like what he did during that event. He has had a similar event happen a couple times over the last couple of years but has yet to have been evaluated for it. The patient tells me he is a patient of Dr. Gutierrez but he does not know what exactly he is seen for. Record review shows he has a history of congestive heart failure as well as atrial fibrillation. He is on Coumadin. EMS reports stable vital signs in route outside of slightly low heart rate, 55. upon my arrival the patient was alert and oriented. During our conversation however on 4 L of O2 his saturation would drop to 85% while talking without any reported symptoms. His heart rate was in the mid 50s sinus rhythm. He reported more shortness of breath and was only lightheaded when he was walking back to his chair with his coffee. He denied any chills fever night sweats but continues to smoke as does his . He has home oxygen but was not wearing it at this time. He continued to feel shortness of breath so he summoned EMS services after talking with his . He reports baseline cough and whitish sputum production his normal only. He denied chest pain orthopnea PND or pedal edema. Date Seen 07/04/23 Time Seen by a Provider: 07:00 Attending Physician No,Local Physician PCP Admitting Physician: Davin Quinones MD Attending Physician: Davin Quinones MD Referring Physician Date of Admission Jul 03, 2023 at 17:39 Home Medications & Allergies Home Medications Reviewed patient Home Medication Reconciliation performed by pharmacy medication reconciliations chemical research technician and/or nursing. Patients Allergies have been reviewed. Allergies Allergies Coded Allergies No Known Drug Allergies (Unverified05/02/23) Past Fqqfceh-Yjvpqz-Vdgkvj Hx Patient Social History Tobacco Use?: Yes Tobacco type used: Cigarettes Smoking Status: Current Everyday Smoker Use of E-Cig and/or Vaping dev: No Substance use?: No Alcohol Use?: No Pt feels they are or have been: No Immunizations Up To Date First/Initial COVID19 Vaccinat: "i dont know" Second COVID19 Vaccination Isacc: "i dont know" Tetanus Booster (TDap): Unknown Seasonal Allergies Seasonal Allergies: No Current Status Advance Directives: No Communicates: Verbally Primary Language: Egyptian Preferred Spoken Language: Egyptian Is interpretation needed?: No Past Medical History Surgeries: Appendectomy, Orthopedic, Valve Replacement Atrial Fibrillation, Cardiomyopathy, High Cholesterol, Hypertension, Valvular Heart Disease Sexually Transmitted Disease: No HIV/AIDS: No Hiatal Hernia, Ulcer Fractures Blood Disorders: No Adverse Reaction/Blood Tranf: No Family Medical History FH: COPD (chronic obstructive pulmonary disease) 19 MOTHER Review of Systems Constitutional: see HPI Physical Exam Physical Exam Vital Signs Vital Signs - First Documented 07/03/23 07/03/23 07/03/23 14:45 17:31 19:29 Pulse 59 Resp 20 B/P (MAP) 136/67 (90) Pulse Ox 92 O2 Delivery Room Air O2 Flow Rate 2.00 FiO2 28 Capillary Refill : Greater Than 3 Seconds Height, Weight, BMI Height: 6'2.00" Weight: 185lbs. 8.0oz. 84.237261bq; 21.91 BMI Method:Stated General Appearance: No Apparent Distress, Chronically ill Respiratory: Chest Non Tender, No Accessory Muscle Use, No Respiratory Di stress, Other (Scattered rhonchi with expiratory wheezing throughout deep breaths induces a nonproductive cough.) Cardiovascular: Regular Rate, Rhythm, No Edema, No Gallop, No JVD, No Murmur, Normal Peripheral Pulses Extremity: Normal Capillary Refill, Normal Range of Motion, Non Tender, No Calf Tenderness, No Pedal Edema, Other ( extremities compatible with sarcopenia diffuse) Results Results/Procedures Labs Laboratory Tests 07/03/23 14:23 07/03/23 14:42 07/04/23 04:18 Patient resulted labs reviewed. Assessment/Plan Admission Diagnosis 1. Probable acute COPD exacerbation due to ongoing tobaccoism with secondary hypoxia. Will add prednisone to current bronchodilator regiment. We discussed the importance of tobacco cessation altogether considering the end-stage nature of his COPD and extremely limited life expectancy if he continues to smoke as well as continued decrease in ability to perform ADLs which were discussed in layman's terms. 2. Bradycardia may be contributing to overall weakness likely due to combination of donepezil and carvedilol we will be holding both for now. 3. Hypertension holding antihypertensive medication for now as his pressures have been normal. Admission Status: Inpatient Order (span 2 midnights) Reason for Inpatient Admission: See admission diagnosis Clinical Quality Measures AMI/AHF: ASA po Prior to arrival: No DAVIN QUINONES MD Jul 04, 2023 11:43
[2023-07-04 12:00] VITALS: BP_SYST 113; BP_SYST 115; BP_DIAS 49; BP_DIAS 52
--- NOTE | 2023-07-04 12:45 | Consultation-Cardiology ---
HPI-Cardiology Cardiology Consultation: Date of Consultation 07/04/23 Time Seen by a Provider: 11:30 Date of Admission Attending Physician Deisi,Local Physician Admitting Physician Admitting Physician: Davin Hill MD Attending Physician: Davin Hill MD Consulting Physician TABITHA MAYES MD, MA, FACP, FACC, [facility], CCDS Physician requesting consult: Dr Hill Primary mri assistant: Dr Davis HPI: Chief Complaint: Reason for Card consult: Bradycardia 68 yo man who had profound dizziness yesterday, more marked with posture changes. Denies henry syncope. Denies cp or palp or swelling or shortness of breath. Notes gen malaise and weakness. Denies focal weakness. Feels better today Review of Systems-Cardiology Review of Systems Constitutional: No chills, No fever; malaise; No weight loss, No weight gain Eyes: No vision change Ears/Nose/Throat: No ear discharge, No nasal drainage Respiratory: As described under HPI Cardiovascular: As described under HPI Gastrointestinal: No diarrhea, No nausea, No vomiting Genitourinary: No dysuria, No hematuria, No urine frequency changes Musculoskeletal: No back pain, No joint pain Skin: No rash, No ulcerations Psychiatric/Neurological: No seizure, No focal weakness, No syncope Hematologic: No bleeding abnormalities [id number] Hx Patient Social History Smoking Status: Current Everyday Smoker Alcohol Use?: No Pt feels they are or have been: No Tobacco type used: Cigarettes Immunizations Up To Date Tetanus Booster (TDap): Unknown Past Medical History PMH As described under Assessment. Family Medical History Family History: FH: COPD (chronic obstructive pulmonary disease) 19 MOTHER Allergies and Home Medications Allergies Coded Allergies: No Known Drug Allergies (Unverified , 05/02/23) Patient Home Medication List Home Medication List Reviewed: Yes Amlodipine Besylate (Amlodipine Besylate) 10 Mg Tablet, 10 MG PO DAILY, (Reported) Entered as Reported by: KURT MONET on 06/09/22 08 Aspirin (Aspirin EC) 81 Mg Tablet.dr 81 MG PO DAILY, (Reported) Entered as Reported by: PHYLLIS BRONSON on 07/27/17 1720 Carvedilol (Carvedilol) 12.5 Mg Tablet, 12.5 MG PO BID, (Reported) Entered as Reported by: KURT MONET on 06/09/22 0802 Donepezil HCl (Donepezil HCl) 10 Mg Tablet, 10 MG PO HS, (Reported) Entered as Reported by: KURT MONET on 06/09/22801 Escitalopram Oxalate (Escitalopram Oxalate) 10 Mg Tablet, 10 MG PO HS, (Reported) Entered as Reported by: KURT MONET on 06/09/22801 Fish Oil/Dha/Epa (Fish Oil 1,200 mg Fish Oil) 1 Each Capsule, 1,200 MG PO DAILY, (Reported) Entered as Reported by: PHYLLIS BRONSON on 07/27/17 172 Fluticasone/Umeclidin/Vilanter (Trelegy Ellipta 100-62.5-25) 100-62.5 Blst.w.dev, 1 EACH IH BID, (Reported) Entered as Reported by: JENNI DAMON on 05/04/23 0952 Lisinopril (Lisinopril) 40 Mg Tablet, 40 MG PO DAILY, (Reported) Entered as Reported by: PHYLLIS BRONSON on 07/27/17 170 Multivitamin (Multivitamins) 1 Each Tablet, 1 TAB PO DAILY, (Reported) Entered as Reported by: PHYLLIS BRONSON on 07/27/17 172 Omeprazole (Omeprazole) 20 Mg Capsule.dr, 20 MG PO DAILY, (Reported) Entered as Reported by: KURT MONET on 06/09/22801 Prednisone (Prednisone) 10 Mg Tab.ds.pk, 10 MG PO DAILY Prescribed by: MIKAELA OMER on 05/04/23 1147 Rosuvastatin Calcium (Rosuvastatin Calcium) 10 Mg Tablet, 10 MG PO HS, (Reported) Entered as Reported by: KURT MONET on 06/09/22801 Warfarin Sodium (Warfarin Sodium) 10 Mg Tablet, 5 MG PO MON,FRI, (Reported) Entered as Reported by: KURT MONET on 06/09/22801 Warfarin Sodium (Warfarin Sodium) 10 Mg Tablet, 10 MG PO SAT,THU,,THU,, (Reported) Entered as Reported by: KURT MONET on 06/09/22801 Physical Exam-Cardiology Physical Exam Vital Signs/I&O 07/04/23 07/04/23 07/04/23 07/04/23 01:00 02:49 04:00 07:00 Pulse 50 49 46 Resp 13 B/P (MAP) 129/69 (89) Pulse Ox 90 95 O2 Delivery Nasal Cannula Nasal Cannula O2 Flow Rate 4.00 07/04/23 07/04/23 07/04/23 07/04/23 08:00 08:00 08:39 12:00 Temp 36.0 36.6 Pulse 51 56 Resp 20 20 B/P (MAP) 112/56 (74) 113/52 (72) Pulse Ox 94 92 O2 Delivery Nasal Cannula Nasal Cannula Nasal Cannula Room Air O2 Flow Rate 4.00 4.00 4.00 4.00 07/04/23 07/04/23 12:00 12:35 Pulse 55 52 Resp 11 B/P (MAP) 115/49 (69) Pulse Ox 91 O2 Delivery Nasal Cannula O2 Flow Rate 4.00 07/04/23 00:00 Intake Total 350 ml Output Total 500 ml Balance -150 ml Capillary Refill : Greater Than 3 Seconds Constitutional: AAO x 3, well-developed, well-nourished HEENT: EOMI, hearing is well preserved; No xanthelasmas are seen Neck: carotid pulses are 2 + bilaterally, with good upstrokes Respiratory: No accessory muscle use; chest expansion is symmetric, chest is bilaterally symmetric, other (fair air entry; prolonged exp) Cardiovascular: regular rate-rhythm, S1 and S2, systolic murmur (soft HAIR ) Gastrointestinal: No tender; soft; No guarding, No rebound; audible bowel joaquin nds Extremities: No clubbing, No cyanosis, No significant edema Neurologic/Psychiatric: oriented x 3, other (moves all limbs equally) Skin: warm/dry; No cyanosis, No cool, No diaphoresis Data Review Labs Laboratory Tests 07/03/23 14:23: White Blood Count 6.3, Red Blood Count 4.47, Hemoglobin 13.9, Hematocrit 42, Mean Corpuscular Volume 95, Mean Corpuscular Hemoglobin 31, Mean Corpuscular Hemoglobin Concent 33, Red Cell Distribution Width 14.8H, Platelet Count 274, Mean Platelet Volume 9.9, Immature Granulocyte % (Auto) 2, Neutrophils (%) (Auto) 73, Lymphocytes (%) (Auto) 12, Monocytes (%) (Auto) 9, Eosinophils (%) (Auto) 3, Basophils (%) (Auto) 1, Neutrophils # (Auto) 4.6, Lymphocytes # (Auto) 0.7L, Monocytes # (Auto) 0.6, Eosinophils # (Auto) 0.2, Basophils # (Auto) 0.1, Immature Granulocyte # (Auto) 0.1, Prothrombin Time 48.1*H, INR Comment 5.4*H 07/03/23 14:28: Urine Color YELLOW, Urine Clarity CLEAR, Urine pH 7.0, Urine Specific [place] 1.015L, Urine Protein NEGATIVE, Urine Glucose (UA) NEGATIVE, Urine Ketones NEGATIVE, Urine Nitrite NEGATIVE, Urine Bilirubin NEGATIVE, Urine Urobilinogen 0.2, Urine Leukocyte Esterase NEGATIVE, Urine RBC (Auto) NEGATIVE, Urine RBC RARE, Urine WBC RARE, Urine Crystals NONE, Urine Leucine Crystals , Urine Bacteria NEGATIVE, Urine Casts NONE, Urine Mucus NEGATIVE, Urine Culture Indicated NO 07/03/23 14:42: Sodium Level 135, Potassium Level 4.5, Chloride Level 92L, Carbon Dioxide Level 32, Anion Gap 11, Blood Urea Nitrogen 10, Creatinine 0.76, Estimat Glomerular Filtration Rate 97, BUN/Creatinine Ratio 13, Glucose Level 94, Calcium Level 8.8, Corrected Calcium 8.8, Total Bilirubin 1.0, Aspartate Amino Transf (AST/SGOT) 22, Alanine Aminotransferase (ALT/SGPT) 20, Alkaline Phosphatase 87, Troponin I < 0.028, Total Protein 6.9, Albumin 4.0 07/04/23 04:18: White Blood Count 5.7, Red Blood Count 4.24L, Hemoglobin 13.1L, Hematocrit 40, Mean Corpuscular Volume 95, Mean Corpuscular Hemoglobin 31, Mean Corpuscular Hemoglobin Concent 33, Red Cell Distribution Width 14.9H, Platelet Count 238, Mean Platelet Volume 9.8, Immature Granulocyte % (Auto) 1, Neutrophils (%) (Auto) 69, Lymphocytes (%) (Auto) 14, Monocytes (%) (Auto) 13H, Eosinophils (%) (Auto) 3, Basophils (%) (Auto) 1, Neutrophils # (Auto) 3.9, Lymphocytes # (Auto) 0.8L, Monocytes # (Auto) 0.7, Eosinophils # (Auto) 0.2, Basophils # (Auto) 0.1, Immature Granulocyte # (Auto) 0.0, Sodium Level 135, Potassium Level 4.5, Chloride Level 94L, Carbon Dioxide Level 32, Anion Gap 9, Blood Urea Nitrogen 12, Creatinine 0.83, Estimat Glomerular Filtration Rate 94, BUN/Creatinine Ratio 14, Glucose Level 91, Calcium Level 8.4L Laboratory Tests 07/03/23 14:23 07/03/23 14:42 A/P-Cardiology Assessment/Admission Diagnosis Dizziness of undetermined etiology H/o treated with aortic valve replacement with [employer] mechanical prosthesis on November 07, 2014 - on chronic warfarin therapy; supra-therapeutic INR during this hospitalization - Echo on May 21, 2022 showing normal LV size with mild LVH, ejection fraction 50 to 55%, right ventricular enlargement, left atrium dilated, prosthetic valve in the aortic position with peak gradient 29 mmHg, mean gradient 12 mmHg, valve area 1.3 cm, moderate aortic regurgitation, PA pressure 50 to 55 mm Hg (pulmonary hypertension) Coronary artery disease - abnormal stress test done on May 18, 2022 showing reversible ischemia in volving the mid to apical inferior wall, inferolateral wall, stress score 11, SDS 7, ejection fraction 52%. - underwent LHC on 06/09/22 showing nonobstructive disease. H/o mild anemia, managed by pcp Chronic smoker of cigarettes - advised to quit Sinus node dysfunction - H/o PAF, status post A. fib ablation and excision of left atrial appendage on November 07, 2014 - Chronic sinus bradycardia H/o heavy alcohol use, now recovered H/o hypertension - currently with somewhat low bp Hyperlipidemia - lipid profile was done on December 31, 2022 with total cholesterol 173, HDL 91, triglyceride 49, LDL 72 Mild bilateral carotid stenosis - last ultrasound was done in April 2022, monitored by Dr Davis Discussion and Recomendations * Hold carvedilol * Hold amlodipine * iv fluids * Hold warfarin * Echo * Monitor labs * Resume warfarin when INR approaching therapeutic * Advised to quit smoking * Increase activity Clinical Quality Measures AMI/AHF: ASA po Prior to arrival: TABITHA Heath MD FACP FAC CCDS Jul 04, 2023 12:45
[2023-07-04] MEDS: NS IV 1000 ML 1,000 ML IV SCH ×2 (14:40→21:29)
[2023-07-04 16:00] VITALS: BP 109/51
[2023-07-04 20:00] VITALS: BP 139/57
[2023-07-05] MEDS: CATHETER FLUSH 10 ML SYR IVP SCH ×4 (00:14→22:03)
[2023-07-05] MEDS: RT-Ipratropium/Albuterol NEB 3 ML VIAL INH SCH ×4 (02:55→20:11)
[2023-07-05] MEDS: NS IV 1000 ML 1,000 ML IV SCH ×2 (04:50→10:25)
[2023-07-05 05:10] LABS: BASOPHILS % (AUTO) 1 % (0-10); EOSINOPHILS # (AUTO) 0.2 10^3/uL (0.0-0.3); EOSINOPHILS % (AUTO) 3 % (0-10); HEMATOCRIT 38 % (40-54); HEMOGLOBIN 12.6 g/dL (13.3-17.7); LYMPHOCYTES # (AUTO) 0.6 10^3/uL (1.0-4.0); LYMPHOCYTES % (AUTO) 9 % (12-44); MEAN CORPUSCULAR HEMOGLOBIN 31 pg (25-34); MEAN CORPUSCULAR HGB CONC 33 g/dL (32-36); MEAN CORPUSCULAR VOLUME 94 fL (80-99); MEAN PLATELET VOLUME 9.6 fL (9.0-12.2); MONOCYTES # (AUTO) 0.9 10^3/uL (0.0-1.0); MONOCYTES % (AUTO) 13 % (0-12); NEUTROPHILS # (AUTO) 5.2 10^3/uL (1.8-7.8); NEUTROPHILS % (AUTO) 74 % (42-75); PLATELET COUNT 225 10^3/uL (130-400)
[2023-07-05 05:24] LABS: INR 2.6 (0.8-1.4)
[2023-07-05 05:27] LABS: ALBUMIN 3.3 GM/DL (3.2-4.5); POTASSIUM 4.4 MMOL/L (3.6-5.0)
[2023-07-05 05:28] LABS: CALCIUM 8.2 MG/DL (8.5-10.1)
[2023-07-05 05:29] LABS: TOTAL PROTEIN 5.8 GM/DL (6.4-8.2)
[2023-07-05 05:31] LABS: BILIRUBIN,TOTAL 0.9 MG/DL (0.1-1.0)
[2023-07-05 05:33] LABS: CREATININE SERUM 0.76 MG/DL (0.60-1.30)
[2023-07-05 05:36] LABS: MAGNESIUM 1.9 MG/DL (1.6-2.4)
[2023-07-05 08:00] VITALS: BP 131/69
--- NOTE | 2023-07-05 11:54 | Progress Note - Hospitalist ---
Subjective HPI/CC On Admission Date Seen by Provider: Jul 05, 2023 Time Seen by Provider: 07:30 68-year-old male presents to the emergency department via [facility] for what he describes as dizziness. He states he was on the couch and got up, walked across the room and poured himself more coffee. When he started to walk back towards his chair he got lightheaded feeling as though he may pass out. He tells me he got sweaty and had a pain in his right shoulder at that time as well. Symptoms lasted for about 3 to 4 minutes. On arrival he states he feels slightly lightheaded but nothing like what he did during that event. He has had a similar event happen a couple times over the last couple of years but has yet to have been evaluated for it. The patient tells me he is a patient of Dr. Gutierrez but he does not know what exactly he is seen for. Record review shows he has a history of congestive heart failure as well as atrial fibrillation. He is on Coumadin. EMS reports stable vital signs in route outside of slightly low heart rate, 55. upon my arrival the patient was alert and oriented. During our conversation however on 4 L of O2 his saturation would drop to 85% while talking without any reported symptoms. His heart rate was in the mid 50s sinus rhythm. He reported more shortness of breath and was only lightheaded when he was walking back to his chair with his coffee. He denied any chills fever night sweats but continues to smoke as does his . He has home oxygen but was not wearing it at this time. He continued to feel shortness of breath so he summoned EMS services after talking with his . He reports baseline cough and whitish sputum production his normal only. He denied chest pain orthopnea PND or pedal edema. Subjective/Events-last exam Patient reports feeling better today and no dizziness no chest discomfort decreased cough nonproductive. No night sweats chills or fever reported. Objective Exam Vital Signs Vital Signs Date Time Temp Pulse Resp B/P (MAP) Pulse Ox O2 Delivery O2 Flow Rate FiO2 07/05/23 08:00 61 21 131/69 (89) 96 Room Air 4.00 07/05/23 08:00 36.4 07/03/23 19:29 28 Capillary Refill : Greater Than 3 Seconds General Appearance: No Apparent Distress, Chronically ill, Thin Respiratory: Other (Diminished breath sounds posteriorly scattered rhonchi with mild wheezing improved airflow compared to yesterday.) Cardiovascular: Regular Rate, Rhythm, No Edema, No Gallop, No JVD, No Murmur, Other ( Heart rate up to the 60s) Gastrointestinal: Normal Bowel Sounds, No Organomegaly, No Pulsatile Mass, Non Tender, Soft Results/Procedures Lab Laboratory Tests 07/05/23 04:46 Patient resulted labs reviewed. Assessment/Plan Assessment and Plan Assess & Plan/Chief Complaint 1. Probable acute COPD exacerbation due to ongoing tobaccoism with secondary hypoxia Improved on 4 L O2 saturations are in the mid to upper 90s with no desaturation during conversation today as was the case yesterday. We discussed the importance of tobacco cessation altogether considering the end-stage nature of his COPD and extremely limited life expectancy if he continues to smoke as well as continued decrease in ability to perform ADLs which were discussed in layman's terms. 2. Bradycardia Resolved off of donepezil and carvedilol blood pressures normal range continue to hold medication if respiratory status continues to improve consider discharge tomorrow. 3. Hypertension holding antihypertensive medication for now as his pressures have been normal. Admission Status: Inpatient Order (span 2 midnights) Clinical Quality Measures AMI/AHF: ASA po Prior to arrival: RICARDA Dobbins MD Jul 05, 2023 11:54
[2023-07-05 12:15] VITALS: BP 134/63
--- NOTE | 2023-07-05 15:12 | Progress Note - Cardiology ---
Cardiology SOAP Progress Note Subjective: No cp or palp or syncope or shortness of breath No n/v/d No focal weakness Gen weakness and malaise improving Objective: I&O/Vital Signs 07/05/23 07/05/23 07/05/23 07/05/23 04:00 06:40 07:00 08:00 Pulse 57 54 Resp 19 B/P (MAP) Pulse Ox 94 95 96 O2 Delivery Room Air Nasal Cannula Nasal Cannula O2 Flow Rate 4.00 4.00 4.00 07/05/23 07/05/23 07/05/23 07/05/23 08:00 08:00 12:15 12:21 Temp 36.4 36.6 Pulse 61 61 61 70 Resp 24 21 20 B/P (MAP) 131/69 (89) 131/69 (89) 134/63 (86) Pulse Ox 93 96 91 O2 Delivery Nasal Cannula Room Air Nasal Cannula O2 Flow Rate 4.00 4.00 4.00 07/05/23 15:03 Pulse Ox 98 O2 Delivery Nasal Cannula O2 Flow Rate 4.00 07/05/23 00:00 Intake Total 1760 ml Output Total 300 ml Balance 1460 ml Weight (Pounds): 185 Weight (Ounces): 8.0 Weight (Calculated Kilograms): 84.805079 Constitutional: AAO x 3, well-developed, well-nourished Respiratory: No accessory muscle use; chest expansion is symmetric, chest is bilaterally symmetric, other (fair air entry; prolonged exp) Cardiovascular: regular rate-rhythm, S1 and S2, systolic murmur (soft HAIR ) Gastrointestional: No tender; soft; No guarding, No rebound; audible bowel sounds Extremities: No clubbing, No cyanosis, No significant edema Neurologic/Psychiatric: oriented x 3, other (moves all limbs equally) Skin: warm/dry; No cyanosis, No cool, No diaphoresis Results/Procedures: Labs Laboratory Tests 07/05/23 04:46: White Blood Count 7.0, Red Blood Count 4.06L, Hemoglobin 12.6L, Hematocrit 38L, Mean Corpuscular Volume 94, Mean Corpuscular Hemoglobin 31, Mean Corpuscular Hemoglobin Concent 33, Red Cell Distribution Width 14.8H, Platelet Count 225, Mean Platelet Volume 9.6, Immature Granulocyte % (Auto) 0, Neutrophils (%) (Auto) 74, Lymphocytes (%) (Auto) 9L, Monocytes (%) (Auto) 13H, Eosinophils (%) (Auto) 3, Basophils (%) (Auto) 1, Neutrophils # (Auto) 5.2, Lymphocytes # (Auto) 0.6L, Monocytes # (Auto) 0.9, Eosinophils # (Auto) 0.2, Basophils # (Auto) 0.0, Immature Granulocyte # (Auto) 0.0, Prothrombin Time 28.0H, INR Comment 2.6H, Sodium Level 135, Potassium Level 4.4, Chloride Level 99, Carbon Dioxide Level 27, Anion Gap 9, Blood Urea Nitrogen 14, Creatinine 0.76, Estimat Glomerular Filtration Rate 97, BUN/Creatinine Ratio 18, Glucose Level 91, Calcium Level 8.2L, Corrected Calcium 8.8, Magnesium Level 1.9, Total Bilirubin 0.9, Aspartate Amino Transf (AST/SGOT) 21, Alanine Aminotransferase (ALT/SGPT) 16, Alkaline Phosphatase 71, Total Protein 5.8L, Albumin 3.3, Thyroid Stimulating Hormone (TSH) 1.28 Microbiology 07/03/23 MRSA Screen - Final, Complete MRSA not isolated Laboratory Tests 07/04/23 04:18 07/05/23 04:46 A/P: Assessment: Dizziness of undetermined etiology H/o treated with aortic valve replacement with [employer] mechanical prosthesis on November 07, 2014 - on chronic warfarin therapy; supra-therapeutic INR during this hospitalization - Echo on May 21, 2022 showing normal LV size with mild LVH, ejection fraction 50 to 55%, right ventricular enlargement, left atrium dilated, prosthetic valve in the aortic position with peak gradient 29 mmHg, mean gradient 12 mmHg, valve area 1.3 cm, moderate aortic regurgitation, PA pressure 50 to 55 mm Hg (pulmonary hypertension) - Echo on 07-05-23: LVEF 65-70%, grade 2 diastolic dysfunction, mild biatrial enlargement, mild MR, mod TR, adequately functioning prosthetic aortic valve, PASP 65-70 mmHg (pulmonary hypertension) Coronary artery disease - abnormal stress test done on May 18, 2022 showing reversible ischemia involving the mid to apical inferior wall, inferolateral wall, stress score 11, SDS 7, ejection fraction 52%. - underwent LHC on 06/09/22 showing nonobstructive disease. H/o mild anemia, managed by pcp Chronic smoker of cigarettes - advised to quit Sinus node dysfunction - H/o PAF, status post A. fib ablation and excision of left atrial appendage on November 07, 2014 - Chronic sinus bradycardia H/o heavy alcohol use, now recovered H/o hypertension - currently with somewhat low bp Hyperlipidemia - lipid profile was done on December 31, 2022 with total cholesterol 173, HDL 91, triglyceride 49, LDL 72 Mild bilateral carotid stenosis - last ultrasound was done in April 2022, monitored by Dr Davis Plan: * Hold carvedilol * Hold amlodipine * D/c iv fluids * Resume warfarin in a lower dose * Monitor labs * Advised to quit smoking * Increase activity Clinical Quality Measures AMI/AHF: ASA po Prior to arrival: TABITHA Heath MD FACP FAC CCDS Jul 05, 2023 15:12
[2023-07-05 16:47] VITALS: BP 134/63
[2023-07-05] MEDS ORDERED: warFARin 3 MG (COUMADIN) TAB PO SCH (18:00)
[2023-07-05 19:22] VITALS: BP 128/80
[2023-07-05 23:05] VITALS: BP 130/67
[2023-07-06] MEDS: RT-Ipratropium/Albuterol NEB 3 ML VIAL INH SCH ×3 (02:12→14:49)
[2023-07-06 03:23] VITALS: BP 139/71
[2023-07-06] MEDS: CATHETER FLUSH 10 ML SYR IVP SCH ×2 (05:16→14:03)
[2023-07-06 05:59] LABS: BASOPHILS # (AUTO) 0.1 10^3/uL (0.0-0.1); BASOPHILS % (AUTO) 1 % (0-10); EOSINOPHILS # (AUTO) 0.2 10^3/uL (0.0-0.3); EOSINOPHILS % (AUTO) 4 % (0-10); HEMATOCRIT 40 % (40-54); HEMOGLOBIN 13.1 g/dL (13.3-17.7); LYMPHOCYTES # (AUTO) 0.6 10^3/uL (1.0-4.0); LYMPHOCYTES % (AUTO) 10 % (12-44); MEAN CORPUSCULAR HEMOGLOBIN 31 pg (25-34); MEAN CORPUSCULAR HGB CONC 33 g/dL (32-36); MEAN CORPUSCULAR VOLUME 94 fL (80-99); MEAN PLATELET VOLUME 9.8 fL (9.0-12.2); MONOCYTES # (AUTO) 0.8 10^3/uL (0.0-1.0); MONOCYTES % (AUTO) 13 % (0-12); NEUTROPHILS # (AUTO) 4.5 10^3/uL (1.8-7.8); NEUTROPHILS % (AUTO) 73 % (42-75); PLATELET COUNT 234 10^3/uL (130-400); WHITE BLOOD COUNT 6.3 10^3/uL (4.3-11.0)
[2023-07-06 06:15] LABS: INR 1.6 (0.8-1.4); PROTHROMBIN TIME PATIENT 19.1 SEC (12.2-14.7)
[2023-07-06 06:18] LABS: POTASSIUM 5.1 MMOL/L (3.6-5.0)
[2023-07-06 06:19] LABS: CALCIUM 8.8 MG/DL (8.5-10.1)
[2023-07-06 06:23] LABS: CREATININE SERUM 0.83 MG/DL (0.60-1.30)
--- NOTE | 2023-07-06 08:41 | Cardiology Progress Note ---
Subjective Date Seen by Provider: Jul 06, 2023 Time Seen by Provider: 08:36 Subjective/Events-last exam Patient was seen at bedside, feeling better. No further episodes of dizziness or lightheadedness. Denied any chest pain, still having mild dyspnea on exertion Review of Systems General: No Chills, No Night Sweats, No Fatigue, No Malaise, No Appetite, No Other HEENT: No Head Aches, No Visual Changes, No Eye Pain, No Ear Pain, No Dysphasia, No Sinus Congestion, No Post Nasal Drip, No Sore Throat, No Other Pulmonary: No Dyspnea, No Cough, No Pleuritic Chest Pain, No Other Cardiovascular: No: Chest Pain, Palpitations, Orthopnea, Paroxysmal Noc. Dyspnea, Edema, Lt Headedness, Other Objective-Cardiology Exam Last Set of Vital Signs Vital Signs 07/03/23 07/06/23 07/06/23 19:29 03:23 07:12 Temp 36.9 Pulse 65 Resp 20 B/P (MAP) 139/71 (93) Pulse Ox 91 O2 Delivery Nasal Cannula O2 Flow Rate 4.00 FiO2 28 I&O Intake and Output 07/06/23 00:00 Intake Total 1600 ml Balance 1600 ml Intake Oral 600 ml IV Total 1000 ml # Voids 6 # Bowel Movements 1 General: Alert, Oriented X3, Cooperative HEENT: Atraumatic, PERRLA Neck: Supple, No JVD, No Thyromegaly Lungs: Clear to Auscultation, Normal Air Movement Heart: Regular Rate, Normal S1, Normal S2, Other (Systolic murmur at the left sternal border) Abdomen: Normal Bowel Sounds, Soft, No Tenderness, No Hepatosplenomegaly, No Masses Extremities: No Clubbing, No Cyanosis, No Edema, Normal Pulses, No Tenderness/Swelling Skin: No Rashes, No Breakdown, No Significant Lesion Neuro: Normal Speech, Strength at 5/5 X4 Ext, Normal Tone, Sensation Intact Psych/Mental Status: Mental Status NL, Mood NL Results Lab Laboratory Tests 07/06/23 05:33 A/P-Cardiology Admission Diagnosis Dizziness and lightheadedness Aortic valve stenosis Coronary artery disease Hypertension Assessment/Plan Dizziness and lightheadedness, transient. Probably secondary to hypotension. No further episodes of dizziness Hold amlodipine, restart carvedilol and monitor heart rate and blood pressure. Elevated INR, Coumadin dose adjusted. Was maintained on Jantoven 10 mg on Thursday and otherwise 5 mg for with the rest of the week Currently INR is subtherapeutic. Hyperkalemia, resume Lasix 20 mg daily and monitor electrolytes Aortic valve stenosis, status post aortic valve replacement with [employer] mechanical prosthesis on November 07, 2014, echocardiogram was done on October 26, 2020 showing normal LV size, EF 55 to 65 percent, mild to moderate MR, prosthetic valve in the aortic position with peak gradient 21 mmHg, mean gradient 11 mmHg, valve area 2.0 cm, moderate severe regurgitation with severe tricuspid regurgitation and PA pressure 60 to 65 mmHg. 2D echo done on May 27, 2021 showing normal LV size with EF 50 to 55%, mild mitral regurgitation, in the aortic position with mild stenosis with peak gradient 21 mmHg mean gradient 11 mmHg valve area 1.83 cm, moderate-severe aortic regurgitation, PA pressure 50 to 55 mmHg. 53. Colon: On May 21, 2022 showing normal LV size with mild LVH, ejection fraction 50 to 55%, right ventricular enlargement, left atrium dilated, prosthetic valve in the aortic position with peak gradient 29 mmHg, mean gradient 12 mmHg, valve area 1.3 cm, moderate aortic regurgitation, PA pressure 50 to 55 mmHg 2D echo done on July 05, [address] Shi as mild LVH with ejection fraction 65 to 70%, grade 2 diastolic dysfunction, biatrial enlargement, mild mitral regurgitation, prosthetic valve in the aortic position functioning normally, pulmonary hypertension with PA pressure 65 to 70 mmHg Coronary artery disease, abnormal stress test done on May 18, 2022 showing reversible ischemia involving the mid to apical inferior wall, inferolateral wall, stress score 11, SDS 7, ejection fraction 52%. underwent LHC on 06/09/22 showing nonobstructive disease. Anemia, followed by primary care physician Pulmonary hypertension with pulmonary artery pressure of 50 to 55 mmHg. Educated on smoking cessation Congestive heart failure, chronic left ventricular systolic dysfunction, history of ejection fraction 15 percent secondary to valve disease and atrial fibrillation. Repeat echo showed ejection fraction returned to normal. Last echocardiogram done in April 2022 showing normal LV size with moderate LVH with EF 50 to 55 mmHg Paroxysmal atrial fibrillation, status post A. fib ablation and excision of left atrial appendage on November 07, 2014. Continue to monitor Sinus node dysfunction with sinus bradycardia, better at this time. Continue to monitor History of Elevated LFTs-likely secondary to EtOH use. Patient does not drink anymore, most recent LFTs within normal limits. Hypertension, labile blood pressure Continue to monitor Hyperlipidemia, lipid profile was done on December 31, 2022 with total cholesterol 173, HDL 91, triglyceride 49, LDL 72. Continue to monitor Tobaccoism, we discussed smoking cessation again with the patient. Mild bilateral carotid stenosis, last ultrasound was done in April 2022, continue to monitor MISAEL CORTÉS MD Jul 06, 2023 08:41
[2023-07-06 08:54] VITALS: BP 153/70
[2023-07-06] MEDS ORDERED: FUROSEMIDE 20 MG TABLET PO SCH (09:00)
[2023-07-06] MEDS ORDERED: carvediloL 12.5 MG TABLET PO SCH (09:00)
[2023-07-06] MEDS ORDERED: PANTOPRAZOLE 20 MG TABLET PO SCH (09:00)
[2023-07-06] MEDS ORDERED: OMEG100032 PO (11:49)
[2023-07-06] MEDS ORDERED: HYDR-700 PO (11:49)
[2023-07-06] MEDS ORDERED: FURO20TA4 PO (11:49)
[2023-07-06] MEDS ORDERED: POTA-185 PO (11:49)
[2023-07-06] MEDS ORDERED: WRF5T PO ×2 (11:49)
[2023-07-06 12:00] VITALS: BP 123/62
[2023-07-06] MEDS ORDERED: CARV6.252 PO (13:55)
[2023-07-06 15:05] VITALS: BP 123/62
--- NOTE | 2023-07-06 16:11 | Discharge Summary ---
Discharge Summary Hospital Course Problems/Dx: (1) Near syncope Status: Acute (2) Bradycardia Status: Acute (3) Hypotension Status: Acute (4) HTN (hypertension) Status: Chronic (5) COPD (chronic obstructive pulmonary disease) Status: Chronic (6) Tobacco abuse Status: Chronic Hospital Course Date of Admission: Jul 03, 2023 at 17:39 Admission Diagnosis : Near syncope Family Physician/Provider: Arnie Lipscomb Physician Date of Discharge: 07/06/23 Discharge Diagnosis: Near syncope due to hypotension Hospital Course: Kameron Chacon is a 68 year old male who presented with dizziness and was admitted with near syncope. This was thought to be due to hypotension. He also had some mild bradycardia. Cardiology was consulted and assisted with his care. His medications were adjusted. His Coreg was decreased. His Lisinopril was sto pped. He had no further episodes of near syncope or hypotension. He was discharged home in stable condition. He was encouraged to quit smoking. He should follow up with his PCP in about a week. Labs and Pending Lab Test: Laboratory Tests 07/06/23 05:33: White Blood Count 6.3, Red Blood Count 4.21L, Hemoglobin 13.1L, Hematocrit 40, Mean Corpuscular Volume 94, Mean Corpuscular Hemoglobin 31, Mean Corpuscular Hemoglobin Concent 33, Red Cell Distribution Width 15.0H, Platelet Count 234, Mean Platelet Volume 9.8, Immature Granulocyte % (Auto) 0, Neutrophils (%) (Auto) 73, Lymphocytes (%) (Auto) 10L, Monocytes (%) (Auto) 13H, Eosinophils (%) (Auto) 4, Basophils (%) (Auto) 1, Neutrophils # (Auto) 4.5, Lymphocytes # (Auto) 0.6L, Monocytes # (Auto) 0.8, Eosinophils # (Auto) 0.2, Basophils # (Auto) 0.1, Immature Granulocyte # (Auto) 0.0, Prothrombin Time 19.1H, INR Comment 1.6H, Sodium Level 131L, Potassium Level 5.1H, Chloride Level 94L, Carbon Dioxide Level 29, Anion Gap 8, Blood Urea Nitrogen 12, Creatinine 0.83, Estimat Glomerular Filtration Rate 94, BUN/Creatinine Ratio 14, Glucose Level 97, Calcium Level 8.8 Microbiology 07/03/23 MRSA Screen - Final, Complete MRSA not isolated Home Meds Active Carvedilol 6.25 Mg Tablet 6.25 Mg PO BID 30 Days Reported Jantoven (Warfarin Sodium) 5 Mg Tablet 10 Mg PO SUN,,THU,BRIDGET,SAT TAKES 2 (5MG) TABLETS Jantoven (Warfarin Sodium) 5 Mg Tablet 5 Mg PO THU,THU Hydroxyzine HCl 25 Mg Tablet 25 Mg PO DAILY K-Tab ER (Potassium Chloride) 10 Meq Tablet.er 10 Meq PO DAILY Furosemide 20 Mg Tablet 20 Mg PO DAILY Fish Oil 1,000 mg Softgel (Weaver-3/Dha/Epa/Fish Oil) 1,000 Mg (120 Mg-180 Mg) Capsule 1,000 Mg PO DAILY Rosuvastatin Calcium 10 Mg Tablet 10 Mg PO HS Donepezil HCl 10 Mg Tablet 10 Mg PO HS Escitalopram Oxalate 10 Mg Tablet 10 Mg PO HS Amlodipine Besylate 10 Mg Tablet 10 Mg PO DAILY Omeprazole 20 Mg Capsule.dr 20 Mg PO DAILY Multivitamins (Multivitamin) 1 Each Tablet 1 Tab PO DAILY Aspirin EC (Aspirin) 81 Mg Tablet.dr 81 Mg PO DAILY Assessment/Pt Instructions Take medications as prescribed. Follow up with your PCP in about a week. Return with worsening dizziness, shortness of breath, or if you feel like you are g etting worse. Discharge Planning: >30 minutes discharge planning Discharge Instructions Discharge Diet: No Restrictions Activity as Tolerated: Yes Consultations Cardiology Discharge Physical Examination Vital Signs Vital Signs Date Time Temp Pulse Resp B/P (MAP) Pulse Ox O2 Delivery O2 Flow Rate FiO2 07/06/23 15:05 36.5 61 21 123/62 94 Room Air 0.00 07/03/23 19:29 28 General Appearance: No Apparent Distress, Thin Respiratory: No Respiratory Distress, Decreased Breath Sounds Cardiovascular: Regular Rate, Rhythm, No Murmur Gastrointestinal: Normal Bowel Sounds, Soft Extremity: Normal Inspection, No Pedal Edema Skin: Normal Color, Warm/Dry Neurologic/Psychiatric: Alert, Normal Mood/Affect Allergies: Coded Allergies: No Known Drug Allergies (Unverified , 05/02/23) Discharge Summary Date of Admission Jul 03, 2023 at 17:39 Date of Discharge Jul 06, 2023 at 15:05 Discharge Date: Jul 06, 2023 Discharge Time: 15:05 Admission Diagnosis Near syncope Consults/Procedures Consulations Cardiology Discharge Diagnosis (1) Near syncope Status: Acute (2) Bradycardia Status: Acute (3) Hypotension Status: Acute (4) HTN (hypertension) Status: Chronic (5) COPD (chronic obstructive pulmonary disease) Status: Chronic (6) Tobacco abuse Status: Chronic Clinical Quality Measures AMI/AHF: ASA po Prior to arrival: MIKAELA Yang MD Jul 06, 2023 15:57
[2023-07-06] MEDS ORDERED: ROSUVASTATIN 10 MG TABLET PO SCH (21:00)
== END 2023-07-06 15:05 | disposition home or self-care (01) ==
LOC: EDUNIT# 14:14 → ER 14:15 → UNDOADMOB 17:39 → ICU 17:39 → 4TH 07-05 11:59 → ICU 07-05 11:59 → UNDODISOB 07-06 15:05
PROVIDERS: ADMIT Internal Medicine; ATTEND Internal Medicine
DX: R55 Syncope and collapse (principal); I95.9 Hypotension, unspecified; J44.9 Chronic obstructive pulmonary disease, unspecified; R42 Dizziness and giddiness; I25.10 Atherosclerotic heart disease of native coronary artery without angina pectoris; E87.5 Hyperkalemia; I27.20 Pulmonary hypertension, unspecified; I08.3 Combined rheumatic disorders of mitral, aortic and tricuspid valves; I50.22 Chronic systolic (congestive) heart failure; I11.0 Hypertensive heart disease with heart failure; I48.0 Paroxysmal atrial fibrillation; I49.5 Sick sinus syndrome; R79.89 Other specified abnormal findings of blood chemistry; E78.5 Hyperlipidemia, unspecified; I65.23 Occlusion and stenosis of bilateral carotid arteries; F10.10 Alcohol abuse, uncomplicated; F17.210 Nicotine dependence, cigarettes, uncomplicated; Z79.899 Other long term (current) drug therapy; Z79.01 Long term (current) use of anticoagulants; Z95.2 Presence of prosthetic heart valve; Z79.82 Long term (current) use of aspirin
CPT/HCPCS: 70450; 71045; 80048 ×2; 80053 ×2; 81000; 83735; 84443; 84484; 85025 ×4; 85610 ×3; 87081; 93005; 94640 ×4; 94760; 94761; 96361 ×2; 99284; C8929; G0378 ×2; 36415; 93306